=== PATIENT | male | born 1965 | race Caucasian/White ===

== ENCOUNTER → 2017-08-30 | Day surgery (SDC) | payer OTHER ==
[2017-08-24 08:07] VITALS: BMI 38.0
[~2017-08-30] VITALS: Ht 188 cm; Wt 136.4 kg
[~2017-08-30] MED LIST: ATOR-24 PO; BENZOCAIN/TETRACA/BUTAM SPRAY 200 APPLN/20 GM SPRY ONE; FRS/40 PO; GLYCOPYRROLATE INJ 0.2 MG/ML VIAL ONE; HYZ/50125 PO; KETAMINE HCL INJ 50 MG/ML 10 ML VIAL ONE; LEVO175T3 PO; LIDOCAINE HCL 2% 2 ML VIAL (20MG/ML) ONE; MIDAZOLAM HCL 1 MG/ML 2ML VIAL ONE; MULT-506 PO; PRLSR20 PO; PROPOFOL IV EMULSION 10 MG/ML 20 ML VIAL IV ONE
[2017-08-30 07:55] VITALS: Ht 188 cm; Wt 136.4 kg
--- NOTE | 2017-08-30 08:53 | Endo History and Physical ---
History & Physical Date of Service: Aug 30, 2017. Chief Complaint: HX OF BARRETTS Referring Physician: DR HAMMER History of Present Illness h/o owens's Past Medical History Gastrointestinal Disorder, Reflux, High Cholesterol, Sleep Apnea, Hypertension, Thyroid Disease Past Surgical History Hx Cardiac Surgery: No Hx Internal Defibrillator: No Hx Pacemaker: No Hx Abdominal Surgery: No Hx Post-Op Nausea and Vomiting: No Hx Cancer Surgery: No Hx Thoracic Surgery: No Hx Orthopedic: Yes (RT KNEE ARTHROSCOPY) Hx Urinary Tract Surgery: No Family History None Social History Smoking Status: Former Smoker Hx Substance Use: No Hx Alcohol Use: Yes (OCCASIONALLY) Allergies Coded Allergies: No Known Allergies (Unverified , 08/30/17) Current Medications Reported Home Medications Medications Dose Route/Sig Max Daily Dose Days Date Category Hyzaar 12.5MG/50MG (HCTZ/Losartan Potassium) Tab 1 Tab PO QAM 08/24/17 Reported Prilosec (Omeprazole) 20 Mg Capcr 20 Mg PO QAM 08/24/17 Reported Multivitamin (Multivitamins) Tab 1 Tab PO QAM 08/24/17 Reported Levothyroxine Sodium 175 Mcg Tab 1 Tab PO QAM 08/24/17 Reported Lasix (Furosemide) 40 Mg Tab 40 Mg PO 2XWK 08/24/17 Reported Lipitor (Atorvastatin Calcium) 40 Mg Tab 40 Mg PO QAM 03/05/14 Reported Vital Signs Weight (Kilograms): 136.36 Height (Feet): 6 Height (Inches): 2 Date Time Temp Pulse Resp B/P (MAP) Pulse Ox O2 Delivery O2 Flow Rate FiO2 08/30/17 08:00 36.8 62 20 148/85 (106) 96 Room Air Physical Exam General Appearance: no apparent distress Respiratory/Chest: Auscultation: breath sounds normal Cardiovascular: Heart Auscultation: RRR Abdomen: Inspection & Palpation: soft Assessment and Plan Owens's = EGD
--- NOTE | 2017-08-30 09:23 | Discharge Instructions ---
Endoscopy Patient Instructions Date / Procedure(s) Performed Aug 30, 2017. EGD Allergy Information Coded Allergies: No Known Allergies (Unverified , 08/30/17) Discharge Date / Findings Aug 30, 2017. Short segment Winters's esophagus, biopsied. Hiatal hernia. Provider Instructions Activity Restrictions - No exercising or heavy lifting for 24 hours. - Do not drink alcohol the day of the procedure. - Do not drive a car or operate machinery until the day after the procedure. - Do not make any important decisions or sign important papers in 24 hours after the procedure. Following Day: - Return to full activity which may include returning to work/school. Diet Start your diet with liquids and light foods (jello, soup, juice, toast). Then eat your usual diet if not nauseated. Treatment For Common After Affects For mild abdominal pain, bloating, or excessive gas: - Rest - Eat lightly - Lie on right side Follow-Up Information Follow-up with DR HAMMER as scheduled Anesthesia Information What You Should Know You have had a procedure that required some medicine to reduce anxiety and discomfort. This treatment is called moderate sedation. After receiving the treatment, you may be sleepy, but you will be able to breathe on your own. The effects of the treatment may last for several hours. Follow these instructions along with Activity/Diet recommendations noted above: * Do NOT do anything where dizziness or clumsiness would be dangerous. * Rest quietly at home today, then you can be up and about tomorrow. * Have a responsible person stay with you the rest of today. * You may have had an I.V. today. If so, you may take the dressing off later today. Recommendations Call your doctor if: * Trouble breathing * Continuous vomiting for more than 24 hours * Temperature above 101 degrees * Severe abdominal pain or bloating * Pain not relieved by pain medicine ordered * There is increased drainage or redness from any incision * A large amount of rectal bleeding greater than 2-3 tablespoons. (If you had a polyp/s removed or have hemorrhoids, a small amount of blood - from the rectum is to be expected.) * You have any unanswered questions or concerns. IN THE EVENT OF A SERIOUS EMERGENCY, GO TO THE NEAREST EMERGENCY ROOM Your discharge instructions were prepared by provider Leyla Pepe. Patient Instructions Signature Page Niranjan Hayes Patient (or Guardian) Signature/Date: I have read and understand the instructions given to me by my caregivers. Caregiver/RN/Doctor Signature/Date: The above-named patient and/or guardian has received patient instructions on this date. + Original Patient Signature Page (only) stays with chart. Please make copy for patient.
--- NOTE | 2017-08-30 09:23 | GI REPORT ---
Procedure Date: 08/30/2017 8:16 AM Procedure: Upper GI endoscopy Indications: Follow-up of Winters's esophagus Medicines: See the Anesthesia note for documentation of the administered medications Complications: No immediate complications. Estimated Blood Loss: Estimated blood loss: none. Procedure: Pre-Anesthesia Assessment: - ASA Grade Assessment: III - A patient with severe systemic disease. After obtaining informed consent, the endoscope was passed under direct vision. Throughout the procedure, the patient's blood pressure, pulse, and oxygen saturations were monitored continuously. The Scope was introduced through the mouth, and advanced to the second part of duodenum. The upper GI endoscopy was accomplished without difficulty. The patient tolerated the procedure well. Findings: The esophagus and gastroesophageal junction were examined with white light from a forward view and retroflexed position. There were esophageal mucosal changes suggestive of short-segment Winters's esophagus, classified as Winters's stage C0-M1 per Ralph criteria. These changes involved the mucosa at the upper extent of the gastric folds (40 cm from the incisors) extending to the Z-line (39 cm from the incisors). [place]-colored mucosa was present. The maximum longitudinal extent of these esophageal mucosal changes was 1 cm in length. Mucosa was biopsied with a cold forceps for histology. One specimen bottle was sent to pathology. A medium-sized hiatal hernia was present. The stomach was normal. The examined duodenum was normal. Impression: - Esophageal mucosal changes suggestive of short-segment Winters's esophagus, classified as Winters's stage C0-M1 per Ralph criteria. Biopsied. - Medium-sized hiatal hernia. - Normal stomach. - Normal examined duodenum. Recommendation: - Discharge patient to home. Leyla Rome M.D. Leyla Rome MD 08/30/2017 9:22:51 AM This report has been signed electronically. Note Initiated On: 08/30/2017 8:16 AM I attest to the content of the Intraoperative Record and orders documented therein, exceptions below
[2017-08-30 09:49] VITALS: BP 125/74; PULSE 74; O2SAT 96
--- NOTE | 2017-08-30 09:50 | Anesthesiology Progress Note ---
Anesthesia Post Op Note Date & Time Aug 30, 2017 at 09:50 Vital Signs Pain Intensity: 0 Vital Signs Past 12 Hours Date Time Temp Pulse Resp B/P (MAP) Pulse Ox O2 Delivery O2 Flow Rate FiO2 08/30/17 09:33 74 18 130/77 (94) 93 Room Air 08/30/17 09:19 36.0 56 16 125/48 (73) 96 Room Air 08/30/17 08:00 36.8 62 20 148/85 (106) 96 Room Air Notes Mental Status: alert / awake / arousable, participated in evaluation Pt Amnestic to Procedure: Yes Nausea / Vomiting: adequately controlled Pain: adequately controlled Airway Patency, RR, SpO2: stable & adequate BP & HR: stable & adequate Hydration State: stable & adequate Anesthetic Complications: no major complications apparent
== END | disposition home or self-care (01) ==
LOC: C.GI 07:40
PROVIDERS: ATTEND Internal Medicine Gastroenterology
DX: K20.9 Esophagitis, unspecified (principal); K21.9 Gastro-esophageal reflux disease without esophagitis; G47.30 Sleep apnea, unspecified; I10 Essential (primary) hypertension; Z87.891 Personal history of nicotine dependence; G47.33 Obstructive sleep apnea (adult) (pediatric); Z99.89 Dependence on other enabling machines and devices; E78.5 Hyperlipidemia, unspecified

== ENCOUNTER 2025-03-28 19:27 | Inpatient (IN) ==
[2025-03-28] MEDS: HYDROmorphone INJ 0.5 MG/0.5 ML SYR IV STA (20:21)
[2025-03-28 20:30] LABS: Hematocrit (blood only) 42.0 % (42.0-52.0); Hemoglobin 14.6 g/dL (14.0-18.0); Immature Granulocytes # (auto) 0.19 K/uL (0.01-0.20); Immature Granulocytes % (auto) 1.0 %; Mean Corpuscular Hemoglobin 29.5 pg (25.0-34.0); Mean Corpuscular Volume 84.8 fL (80.0-100.0); Platelet Count 421 K/uL (130-400); RDW Standard Deviation 38.1 fL (36.4-46.3); Red Blood Count 4.95 M/uL (4.70-6.10); White Blood Count 18.88 K/ul (4.8-10.8)
[2025-03-28 20:44] LABS: Alanine Aminotransferase 11 U/L (7-52); Albumin Globulin Ratio 1.0 (0.9-2); Albumin Level 4.0 gm/dl (3.4-5.0); Alkaline Phosphatase 114 U/L (34-104); Anion Gap 13 (3-11); Bilirubin,Total 0.5 mg/dl (0.2-1.0); Blood Urea Nitrogen 49 mg/dl (6-23); Calcium 9.5 mg/dl (8.6-10.3); Carbon Dioxide 26 mmol/L (21-32); Chloride 90 mmol/L (98-107); Globulin 3.9 gm/dl (2.5-4.0); Glucose 129 mg/dl (70-99(Fasting)); Potassium 4.0 mmol/L (3.5-5.1); Sodium 129 mmol/L (136-145); Total Protein 7.9 gm/dl (6.0-8.3)
--- NOTE | 2025-03-28 20:53 | Emergency Department Note ---
Impression & Plan Pain from bone metastases, Cancer related pain, Palliative care by specialist, Advanced care planning/counseling discussion ED Provider Note NAME: ABDIEL VALENTINE AGE: 60 SEX: M : 1965 ARRIVES VIA: Walk-In INFORMANT: [Patient][, ] ED PROVIDER(S): [Anita Ramos MD] CHIEF COMPLAINT: Pain management HPI: This is a 60-year-old male presenting for pain management request. 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 He has had a history of lung cancer with metastasis to multiple areas. He is in chronic pain. He had multiple doctors appointments today including palliative and rad oncology. He notes slight improved pain after radiation. ROS: See above HPI for pertinent positives & negatives. A total of [10] systems reviewed and were otherwise negative. PHYSICAL EXAMINATION: General: resting comfortably in no acute distress Head: Normocephalic and atraumatic Eyes: Normal inspection, extraocular muscles intact Ear, nose, throat: Normal external exam Neck: Normal range of motion Respiratory: speaking in full sentences, symmetric chest rise, no respiratory distress Cardiovascular: Regular rate/rhythm Extremities: moves all extremities Neuro: The patient awake and alert, appropriately conversive, symmetric faces, no focal deficits MEDICAL DECISION MAKING: This is a 60-year-old male presenting for pain management request/admission. Will do screening blood work at this time. He was sent in by palliative for admission -Leukocytosis noted to 18, mildly decreased. Slightly worsening hyponatremia/hypochloremia. -Patient given Dilaudid -Care discussed with Dr. Stahl for admission Past Med/Surg History Problem List (Updated 03/28/25 @ 23:18 by Anita Ramos MD) Advanced care planning/counseling discussion (Acute) Anxiety Diabetic foot ulcer (Acute) 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 unknown primary site (Acute) Acute hyperglycemia (Acute) Leukocytosis (Acute) Back pain, lumbosacral Back muscle spasm Palliative care by specialist (Acute) Lumbar pain (Acute) Cancer related pain (Acute) Pain from bone metastases (Chronic) Medical History (Updated 03/28/25 @ 23:18 by Anita Ramos MD) Raynauds disease Parkinson's disease HTN (hypertension) MARISABEL (obstructive sleep apnea) Barretts esophagus Hypothyroidism Obesity Personal history of diabetic foot ulcer Diabetic peripheral neuropathy associated with type 2 diabetes mellitus High cholesterol Surgical History Hx of colonoscopy 2024 H/O arthroscopy of right knee History of neck surgery Wore Halo d/t "broken neck" - no surgery Family History Mother No problems noted. Father , 65yo Myocardial infarction Hypertension Diabetes Bladder cancer Sister History of renal ablation Son No problems noted. Son No problems noted. Social History (Updated 03/27/25 @ 09:13 by Michelle Bernal) Smoking Status: Never smoker Tobacco Type: Cigarettes and Smokeless Tobacco (Dip or Chew) Age Started Using Tobacco: 19; Age Quit Using Tobacco: 24; Second Hand Exposure: Yes; Do You Dip or Chew Tobacco: Yes; Hx Alcohol Use: Yes Alcohol type: beer Alcohol Intake Frequency: 2-4 x/Month Hx Substance Use: No Preferred Language: Belarusian Communication Ability: Effective Visual Impairment: No Limitations Hearing Ability: Normal Epic Radiant Analyst Required: No Beliefs That Will Affect Care: None marital status: Current Living Situation: Significant Other current occupational status: employed 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 How many Children do You have: 2 Feels Safe at Home: Yes Diet: regular caffeine: Yes (1-2 cups/day) during the past year weight has: remained stable Assistive Devices: CPAP and Glasses Allergies Allergies Allergy/AdvReac Type Severity Reaction Status Date / Time No Known Allergies Allergy Verified 03/28/25 21:01 Home Meds Home Medications Medication Instructions Recorded Confirmed atorvastatin 40 mg tablet 40 mg PO DAILY 08/12/22 03/28/25 furosemide 40 mg tablet (Lasix) 40 mg PO DAILY 08/12/22 03/28/25 levothyroxine 175 mcg capsule 175 mcg PO DAILY 08/12/22 03/28/25 losartan 50 mg-hydrochlorothiazide 1 tab PO DAILY 08/12/22 03/28/25 12.5 mg tablet (Hyzaar) multivitamin (One Daily 1 tab PO QAM 08/12/22 03/28/25 Multivitamin tablet) omeprazole 20 mg capsule,delayed 20 mg PO DAILY 08/12/22 03/28/25 release ibuprofen 125 mg-acetaminophen 250 3 tab PO Q8H PRN Pain 03/19/25 03/28/25 mg tablet (Advil Dual Action) tirzepatide 5 mg/0.5 mL 5 mg subcut WK 03/19/25 03/28/25 subcutaneous pen injector (Al) lorazepam 0.5 mg tablet 0.5 mg buccal DIRECTED PRN 03/24/25 03/28/25 NEEDED Previous Rx's Medication Instructions Recorded carbidopa 25 mg-levodopa 100 mg 1 tab PO TID #1 tab 03/21/25 tablet (Dhivy) cyclobenzaprine 10 mg tablet 10 mg PO TID PRN muscle spasm 1 03/21/25 month #90 tabs dexamethasone 4 mg tablet 4 mg PO BID severe cancer pain 1 03/21/25 month #60 tabs oxycodone 15 mg tablet 15 mg PO Q4H PRN cancer related 03/21/25 pain 30 days #180 tabs lidocaine 5 % topical patch 1 patch topical DAILY #30 ea 03/24/25 naloxone 4 mg/actuation nasal 1 spray intranasal ONCE PRN opioid 03/24/25 spray (Narcan) overdose #2 ea lorazepam 1 mg tablet (Ativan) 1 mg PO Q8H PRN SPASMS AND anxiety 03/28/25 1 month #90 tabs Results & Data (ED) Vital Signs Vital Signs - 24 hr 03/28/25 19:29 03/28/25 21:27 03/28/25 21:54 Temperature 36.9 C Temperature Source Temporal Artery Scan Pulse Rate 91 H 78 Pulse Rate [Apical] 78 Pulse Rate from SpO2 Sensor 78 Respiratory Rate 16 19 13 Respiratory Effort / Characteristics Non-Labored Spontaneous Non-Labored Spontaneous Respiratory Depth Normal Normal Respiratory Pattern Regular Regular Blood Pressure 118/81 Blood Pressure [Right Arm] 141/84 H Blood Pressure Mean 93 Blood Pressure Mean [Right Arm] 103 Pulse Oximetry 95 98 98 Oxygen Delivery Method Room Air Room Air Sepsis Recent Fever Within 48 Hours No Sepsis New/Unexplained Change in Mental Status No Sepsis Action Taken by Nursing No Action Required 03/28/25 21:58 03/28/25 22:00 03/28/25 22:00 Temperature Temperature Source Pulse Rate 82 73 Pulse Rate [Apical] Pulse Rate from SpO2 Sensor 73 Respiratory Rate 20 Respiratory Effort / Characteristics Respiratory Depth Respiratory Pattern Blood Pressure 118/82 Blood Pressure [Right Arm] Blood Pressure Mean 97 Blood Pressure Mean [Right Arm] Pulse Oximetry 98 Oxygen Delivery Method Sepsis Recent Fever Within 48 Hours Sepsis New/Unexplained Change in Mental Status Sepsis Action Taken by Nursing 03/28/25 22:00 03/28/25 22:00 03/28/25 22:00 Temperature Temperature Source Pulse Rate Pulse Rate [Apical] Pulse Rate from SpO2 Sensor Respiratory Rate Respiratory Effort / Characteristics Respiratory Depth Respiratory Pattern Blood Pressure 118/82 118/82 118/82 Blood Pressure [Right Arm] Blood Pressure Mean 97 97 97 Blood Pressure Mean [Right Arm] Pulse Oximetry Oxygen Delivery Method Sepsis Recent Fever Within 48 Hours Sepsis New/Unexplained Change in Mental Status Sepsis Action Taken by Nursing 03/28/25 22:00 03/28/25 22:12 03/28/25 22:21 Temperature Temperature Source Pulse Rate 101 H 76 Pulse Rate [Apical] Pulse Rate from SpO2 Sensor 81 76 Respiratory Rate 16 13 Respiratory Effort / Characteristics Respiratory Depth Respiratory Pattern Blood Pressure 118/82 Blood Pressure [Right Arm] Blood Pressure Mean 97 Blood Pressure Mean [Right Arm] Pulse Oximetry 97 95 Oxygen Delivery Method Sepsis Recent Fever Within 48 Hours Sepsis New/Unexplained Change in Mental Status Sepsis Action Taken by Nursing 03/28/25 22:30 03/28/25 22:30 03/28/25 22:30 Temperature Temperature Source Pulse Rate Pulse Rate [Apical] Pulse Rate from SpO2 Sensor Respiratory Rate Respiratory Effort / Characteristics Respiratory Depth Respiratory Pattern Blood Pressure 109/83 109/83 109/83 Blood Pressure [Right Arm] Blood Pressure Mean 98 98 98 Blood Pressure Mean [Right Arm] Pulse Oximetry Oxygen Delivery Method Sepsis Recent Fever Within 48 Hours Sepsis New/Unexplained Change in Mental Status Sepsis Action Taken by Nursing 03/28/25 22:30 03/28/25 22:30 03/28/25 22:30 Temperature Temperature Source Pulse Rate 93 H Pulse Rate [Apical] Pulse Rate from SpO2 Sensor 79 Respiratory Rate 22 Respiratory Effort / Characteristics Respiratory Depth Respiratory Pattern Blood Pressure 109/83 109/83 Blood Pressure [Right Arm] Blood Pressure Mean 98 98 Blood Pressure Mean [Right Arm] Pulse Oximetry 96 Oxygen Delivery Method Sepsis Recent Fever Within 48 Hours Sepsis New/Unexplained Change in Mental Status Sepsis Action Taken by Nursing 03/28/25 22:42 03/28/25 22:51 Temperature Temperature Source Pulse Rate 76 96 H Pulse Rate [Apical] Pulse Rate from SpO2 Sensor 77 Respiratory Rate 14 18 Respiratory Effort / Characteristics Respiratory Depth Respiratory Pattern Blood Pressure Blood Pressure [Right Arm] Blood Pressure Mean Blood Pressure Mean [Right Arm] Pulse Oximetry 99 Oxygen Delivery Method Sepsis Recent Fever Within 48 Hours Sepsis New/Unexplained Change in Mental Status Sepsis Action Taken by Nursing Laboratory Data 03/28/25 20:04 03/28/25 20:04 Lab Results 03/28/25 Range/Units 20:04 WBC 18.88 H (4.8-10.8) K/ul RBC 4.95 (4.70-6.10) M/uL Hgb 14.6 (14.0-18.0) g/dL Hct 42.0 (42.0-52.0) % MCV 84.8 (80.0-100.0) fL MCH 29.5 (25.0-34.0) pg MCHC 34.8 (32.0-36.0) g/dL RDW Std Deviation 38.1 (36.4-46.3) fL RDW Coeff of Melania 12.5 (11.5-14.5) % Plt Count 421 H (130-400) K/uL MPV 9.3 L (9.4-12.4) fL Immature Gran % (Auto) 1.0 % Neut % (Auto) 81.0 % Lymph % (Auto) 8.5 % [place] % (Auto) 9.1 % Eos % (Auto) 0.3 % Baso % (Auto) 0.1 % Neut # (Auto) 15.29 H (1.40-6.50) K/uL Lymph # (Auto) 1.60 (1.20-3.40) K/uL [place] # (Auto) 1.72 H (0.11-0.59) K/uL Eos # (Auto) 0.06 (0.00-0.50) K/uL Baso # (Auto) 0.02 (0.00-0.20) K/uL Immature Gran # (Auto) 0.19 (0.01-0.20) K/uL Sodium 129 L (136-145) mmol/L Potassium 4.0 (3.5-5.1) mmol/L Chloride 90 L (98-107) mmol/L Carbon Dioxide 26 (21-32) mmol/L Anion Gap 13 H (3-11) BUN 49 H (6-23) mg/dl Creatinine 1.40 (0.6-1.4) mg/dl Est Cr Clr Drug Dosing Not Reportable eGFR 57.18 BUN/Creatinine Ratio 35.0 H (10-20) Glucose 129 H (70-99(Fasting)) mg/dl Calcium 9.5 (8.6-10.3) mg/dl Total Bilirubin 0.5 (0.2-1.0) mg/dl AST 22 (13-39) U/L ALT 11 (7-52) U/L Alkaline Phosphatase 114 H (34-104) U/L Total Protein 7.9 (6.0-8.3) gm/dl Albumin 4.0 (3.4-5.0) gm/dl Globulin 3.9 (2.5-4.0) gm/dl Albumin/Globulin Ratio 1.0 (0.9-2) Administered Medications Al Hydrox/Mg Hydrox/Simethicone (Aluminum/Magnesium Susp 30 Ml Udc) 15 ml PO Q6H PRN PRN Reason: heartburn Stop: 04/27/25 22:59 Last Admin: 03/28/25 23:06 Dose: 15 ml Documented By: SAMI Hydromorphone HCl (Hydromorphone Inj 0.5 Mg/0.5 Ml Syr) 0.5 mg IV Q3H PRN PRN Reason: Pain (6,7,8,9,10) Stop: 04/11/25 21:35 Last Admin: 03/28/25 23:00 Dose: 0.5 mg Documented By: SAMI Discontinued Medications Hydromorphone HCl (Hydromorphone Inj 0.5 Mg/0.5 Ml Syr) 0.5 mg IV NOW STA Stop: 03/28/25 20:00 Last Admin: 03/28/25 20:21 Dose: 0.5 mg Documented By: SAMI Discharge Plan Visit Data Chief Complaint: Referred by Doctor Stated Complaint: PAIN MANAGEMENT, CANCER PT, NEEDS ADMITTED ED Provider: Anita Ramos Discharge Problem: Pain from bone metastases, Cancer related pain, Palliative care by specialist, Advanced care planning/counseling discussion Patient Disposition: Admitted As Inpatient Condition: Fair Forms Stand Alone Forms: My [facility] Study Edge Prescriptions Prescriptions: No Action Mounjaro 5 mg/0.5 mL pen injector 5 mg subcut WK Rx Instructions: TUESDAY EVENINGS ibuprofen-acetaminophen [Advil Dual Action] 125-250 mg tablet 3 tab PO Q8H PRN (Reason: Pain) atorvastatin 40 mg tablet 40 mg PO DAILY furosemide [Lasix] 40 mg tablet 40 mg PO DAILY losartan-hydrochlorothiazide [Hyzaar] 50-12.5 mg tablet 1 tab PO DAILY levothyroxine 175 mcg capsule 175 mcg PO DAILY multivitamin [One Daily Multivitamin] Tablet 1 tab PO QAM omeprazole 20 mg capsule,delayed release(DR/EC) 20 mg PO DAILY carbidopa-levodopa [Dhivy] 25-100 mg tablet 1 tab PO TID Qty: 1 0RF Rx Instructions: dos not need this filled, only adding to med list oxycodone 15 mg tablet 15 mg PO Q4H PRN (Reason: cancer related pain) 30 Days Qty: 180 0RF dexamethasone 4 mg tablet 4 mg PO BID 30 Days Qty: 60 1RF cyclobenzaprine 10 mg tablet 10 mg PO TID PRN (Reason: muscle spasm) 30 Days Qty: 90 2RF lorazepam [Ativan] 1 mg tablet 1 mg PO Q8H PRN (Reason: SPASMS AND anxiety) 30 Days Qty: 90 0RF lorazepam 0.5 mg tablet 0.5 mg buccal DIRECTED PRN (Reason: NEEDED) Rx Instructions: Please obtain from the [facility]. lidocaine 5 % adhesive patch,medicated 1 patch topical DAILY Qty: 30 0RF Rx Instructions: leave on most painful area for up to 12 hrs naloxone [Narcan] 4 mg/actuation spray,non-aerosol 1 spray intranasal ONCE PRN (Reason: opioid overdose) Qty: 2 0RF Referrals Referrals: Bessie Lugo MD [Primary Care Provider] -
[2025-03-28] MEDS ORDERED: HYDROmorphone INJ 0.5 MG/0.5 ML SYR IV PRN (21:36)
--- NOTE | 2025-03-28 21:50 | History & Physical Report ---
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 Still with severe, incapacitating pain. Reports he has not been able to stand or walk for the last several days. Newly started XRT with first treatment today - reports some pain relief with this treatment -Admit to PCU -Dilaudid RAILROADER - 0.2mg/hr continuous with 0.2g q 20minuts PRN - max of 0.8mg hourly -Continue Dexamethasone 4mg po daily -Holding Flexeril for now - may resume in AM if needed and if patient doing well on Dilaudid RAILROADER -Holding Ativan for now - concern for oversedation, respiratory depression when administered with increased opioid dosing. May resume with caution if needed -Palliative Care consultation appreciated -Lidoderm patch daily -Senna/Colace qAM scheduled -Miralax 17gm po BID PRN -Zofran PRN nausea -Narcan available for accidental overdose or respiratory depression #Diabetes -Hold Mounjaro - may be contributing in part to patient's constipation -Insulin sliding scale - CF 20, CR 10 -Goal blood sugar 110 - 160 #Hypertension -Continue Losartan/HCTZ for now #GERD -Protonix 40mg po daily #Hypothyroidism -Continue Synthroid 127mcg po daily #Parkinson's Disease -Continue Carbidopa-Levodopa #Hyperlipidemia -Continue Atorvastatin Ppx - Lovenox 40mg SQ daily Code - DNR History of Present Illness Chief Complaint: severe pain Primary Care Provider: Bessie Palmer MD Patient is a 60yo male with history of metastatic malignancy of unknown primary with lesion to bone as well as HTN, HLP, DM, Hypothyroidism presenting with poorly controlled pain secondary to malignancy. Patient started radiation therapy to his L3 spinal lesion today with Dr. Nair - reports he feels some improvement after the first treatment. Is scheduled to have 9 more treatments. Over the last several weeks he has been having poorly controlled pain - located in the back with frequent radiation to the right hip, occasional radiation to the left hip. No trauma. He had been on Oxycodone 5mg po QID. He was seen by the Palliative Care service and his Oxycodone was increased to 15mg po q 4 hours on 03/20/25 as well as Decadron 4mg po BID. Patient with minimal improvement with this regimen. Oxycodone then increased to 30mg po QID. Again with minimal improvement. Patient was seen again by Palliative Care today complaining of severe, ongoing pain. He was referred to the ER for IV main medication. Patient complaining of severe, ongoing lumbar back pain with radiation into the right hip. Positional in nature. He reports that pain has been so severe that he has been unable to stand or walk for the last several days. Also with ongoing constipation. No report of fever, chills, chest pain, cough, SOB, abdominal pain, nausea, vomiting No bowl or bladder dysfunction No new numbness/tingling or weakness of lower extremities - he does have a chronic neuropathy of lower legs bilaterally ER Course: Dilaudid 0.5mg IV x 2 doses Maalox Allergies Allergy/AdvReac Type Severity Reaction Status Date / Time No Known Allergies Allergy Verified 03/28/25 21:01 Home Medications Medication Instructions Recorded Confirmed Type atorvastatin 40 mg tablet 40 mg PO DAILY 08/12/22 03/28/25 History furosemide 40 mg tablet (Lasix) 40 mg PO DAILY 08/12/22 03/28/25 History levothyroxine 175 mcg capsule 175 mcg PO DAILY 08/12/22 03/28/25 History losartan 50 mg-hydrochlorothiazide 1 tab PO DAILY 08/12/22 03/28/25 History 12.5 mg tablet (Hyzaar) multivitamin (One Daily 1 tab PO QAM 08/12/22 03/28/25 History Multivitamin tablet) omeprazole 20 mg capsule,delayed 20 mg PO DAILY 08/12/22 03/28/25 History release ibuprofen 125 mg-acetaminophen 250 3 tab PO Q8H PRN Pain 03/19/25 03/28/25 History mg tablet (Advil Dual Action) tirzepatide 5 mg/0.5 mL 5 mg subcut WK 03/19/25 03/28/25 History subcutaneous pen injector (Mounjaro) carbidopa 25 mg-levodopa 100 mg 1 tab PO TID #1 tab 03/21/25 03/28/25 Rx tablet (Dhivy) cyclobenzaprine 10 mg tablet 10 mg PO TID PRN muscle spasm 1 03/21/25 03/28/25 Rx month #90 tabs dexamethasone 4 mg tablet 4 mg PO BID severe cancer pain 1 03/21/25 03/28/25 Rx month #60 tabs oxycodone 15 mg tablet 15 mg PO Q4H PRN cancer related 03/21/25 03/28/25 Rx pain 30 days #180 tabs lidocaine 5 % topical patch 1 patch topical DAILY #30 ea 03/24/25 03/28/25 Rx lorazepam 0.5 mg tablet 0.5 mg buccal DIRECTED PRN 03/24/25 03/28/25 History NEEDED naloxone 4 mg/actuation nasal 1 spray intranasal ONCE PRN opioid 03/24/25 03/28/25 Rx spray (Narcan) overdose #2 ea lorazepam 1 mg tablet (Ativan) 1 mg PO Q8H PRN SPASMS AND anxiety 03/28/25 03/28/25 Rx 1 month #90 tabs Past Med/Surg History Problem List (Updated 03/28/25 @ 23:27 by Lily Stahl DO) Diabetes Advanced care planning/counseling discussion (Acute) Anxiety Diabetic foot ulcer (Acute) 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 unknown primary site (Acute) Acute hyperglycemia (Acute) Leukocytosis (Acute) Back pain, lumbosacral Back muscle spasm Palliative care by specialist (Acute) Lumbar pain (Acute) Cancer related pain (Acute) Pain from bone metastases (Chronic) Medical History Raynauds disease Parkinson's disease HTN (hypertension) MARISABEL (obstructive sleep apnea) Barretts esophagus Hypothyroidism Obesity Personal history of diabetic foot ulcer Diabetic peripheral neuropathy associated with type 2 diabetes mellitus High cholesterol Surgical History Hx of colonoscopy 2024 H/O arthroscopy of right knee History of neck surgery Wore Halo d/t "broken neck" - no surgery Family History Mother No problems noted. Father , 65yo Myocardial infarction Hypertension Diabetes Bladder cancer Sister History of renal ablation Son No problems noted. Son No problems noted. Social History Smoking Status: Never smoker Tobacco Type: Cigarettes and Smokeless Tobacco (Dip or Chew) Age Started Using Tobacco: 19; Age Quit Using Tobacco: 24; Second Hand Exposure: Yes; Do You Dip or Chew Tobacco: Yes; Hx Alcohol Use: Yes Alcohol type: beer Alcohol Intake Frequency: 2-4 x/Month Hx Substance Use: No Preferred Language: Belarusian Communication Ability: Effective Visual Impairment: No Limitations Hearing Ability: Normal Nursing Director Required: No Beliefs That Will Affect Care: None marital status: Current Living Situation: Significant Other current occupational status: employed 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 How many Children do You have: 2 Feels Safe at Home: Yes Diet: regular caffeine: Yes (1-2 cups/day) during the past year weight has: remained stable Assistive Devices: CPAP and Glasses Review of Systems Review of Systems: All systems reviewed & are unremarkable except as noted in HPI & below Physical Exam Physical Exam: General: patient resting comfortably, NAD, non-toxic in appearance, AA&O x 4 Skin: warm, dry, intact, no rashes or lesions HEENT: NC/AT, PERRL, EOMI, anicteric sclera, conjunctiva without injection, external ear normal to inspection and nontender, nares patent, moist mucus membranes, dentition intact, no oropharyngeal lesions, neck supple, trachea midline, no LAD, no thyromegaly, no JVD Heart: +S1/S2, regular, no m/r/g Lungs: equal air entry bilaterally, no rales/rhonchi/wheezes Abd: +BS, soft, NT/ND, no masses/organomegaly/ascites Ext: warm, 2+ pulses in UE/LE bilaterally, no clubbing/cyanosis or edema Neuro: nonfocal, patient AA&O x 4, speech intact, no facial droop, moving all extremities on command with equal strength 5/5 Results & Data Results & Data Vital Signs (Past 12 Hours) Vital Signs Temp Pulse Pulse Resp BP BP Pulse Ox 03/28/25 21:27 78 19 141/84 H 98 03/28/25 19:29 36.9 C 91 H 16 118/81 95 O2 Del Method 03/28/25 21:27 Room Air 03/28/25 19:29 Room Air Laboratory Results Laboratory Results WBC 18.88 K/ul (4.8-10.8) H 03/28/25 20: RBC 4.95 M/uL (4.70-6.10) 03/28/25 20:04 Hgb 14.6 g/dL (14.0-18.0) 03/28/25 20: Hct 42.0 % (42.0-52.0) 03/28/25 20: MCV 84.8 fL (80.0-100.0) 03/28/25 20: MCH 29.5 pg (25.0-34.0) 03/28/25 20: MCHC 34.8 g/dL (32.0-36.0) 03/28/25 20: RDW Std Deviation 38.1 fL (36.4-46.3) 03/28/25: RDW Coeff of Melania 12.5 % (11.5-14.5) 03/28/25 20: Plt Count 421 K/uL (130-400) H 03/28/25 20: MPV 9.3 fL (9.4-12.4) L 03/28/25 20: Immature Gran % (Auto) 1.0 % 03/28/25 20: Neut % (Auto) 81.0 % 03/28/25: Lymph % (Auto) 8.5 % 03/28/25: [place] % (Auto) 9.1 % 03/28/25 20: Eos % (Auto) 0.3 % 03/28/25 20: Baso % (Auto) 0.1 % 03/28/25 20: Neut # (Auto) 15.29 K/uL (1.40-6.50) H 03/28/25 20: Lymph # (Auto) 1.60 K/uL (1.20-3.40) 03/28/25 20: [place] # (Auto) 1.72 K/uL (0.11-0.59) H 03/28/25 20: Eos # (Auto) 0.06 K/uL (0.00-0.50) 03/28/25 20:04 Baso # (Auto) 0.02 K/uL (0.00-0.20) 03/28/25 20:04 Immature Gran # (Auto) 0.19 K/uL (0.01-0.20) 03/28/25 20:04 Sodium 129 mmol/L (136-145) L 03/28/25 20:04 Potassium 4.0 mmol/L (3.5-5.1) 03/28/25 20:04 Chloride 90 mmol/L (98-107) L 03/28/25 20:04 Carbon Dioxide 26 mmol/L (21-32) 03/28/25 20:04 Anion Gap 13 (3-11) H 03/28/25 20:04 BUN 49 mg/dl (6-23) H 03/28/25 20:04 Creatinine 1.40 mg/dl (0.6-1.4) 03/28/25 20:04 Est Cr Clr Drug Dosing Not Reportable 03/28/25 20: eGFR 57.18 03/28/25 20:04 BUN/Creatinine Ratio 35.0 (10-20) H 03/28/25 20:04 Glucose 129 mg/dl (70-99(Fasting)) H 03/28/25 20:04 Calcium 9.5 mg/dl (8.6-10.3) 03/28/25 20:04 Total Bilirubin 0.5 mg/dl (0.2-1.0) 03/28/25 20:04 AST 22 U/L (13-39) 03/28/25 20:04 ALT 11 U/L (7-52) 03/28/25 20:04 Alkaline Phosphatase 114 U/L (34-104) H 03/28/25 20:04 Total Protein 7.9 gm/dl (6.0-8.3) 03/28/25 20: Albumin 4.0 gm/dl (3.4-5.0) 03/28/25 20: Globulin 3.9 gm/dl (2.5-4.0) 03/28/25 20:04 Albumin/Globulin Ratio 1.0 (0.9-2) 03/28/25 20:04 Diagnostic Findings PET, Tumor Imaging Skull base to Mid Thigh performed 03/28/2025 - READ PENDING Code Status & VTE Plan VTE Prophylaxis Plan VTE Prophylaxis will be ordered: Yes PG Care Time/CCT Total # of Minutes Spent Total Time Spent with Patient: Total time spent is greater than 50% in coordination of care (as documented) at patient's floor/unit and/or counseling patient: Coding Level of Care Code 41910 INT INP/OBS CARE MIN Diagnoses 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 unknown primary site C79.89; C80.1 HTN (hypertension) I10 High cholesterol E78.00 Hypothyroidism E03.9 MARISABEL (obstructive sleep apnea) G47.33 Parkinson's disease G20.A1 Diabetes E11.9
[2025-03-28] MEDS: HYDROmorphone INJ 0.5 MG/0.5 ML SYR IV PRN (23:00)
[2025-03-28] MEDS: ALUMINUM/MAGNESIUM SUSP 30 ML UDC PO PRN (23:06)
[2025-03-29] MEDS ORDERED: DEXTROSE 50% 50 ML SYRINGE IV PRN (00:32)
[2025-03-29] MEDS ORDERED: ACETAMINOPHEN 325 MG TAB PO PRN (00:32)
[2025-03-29] MEDS ORDERED: CARBOHYDRATES FOR HYPOGLYCEMIA PO PRN (00:32)
[2025-03-29] MEDS ORDERED: GLUCAGON FOR INJ 1 MG VIAL SQ PRN (00:32)
[2025-03-29] MEDS ORDERED: STAT IV Infusion **Titration per Protocol STA (00:32)
[2025-03-29] MEDS ORDERED: HYDROmorphone BOLUS from BAG IV PRN (00:32)
[2025-03-29] MEDS ORDERED: GLUCOSE 40% GEL 15 GM TUBE PO PRN (00:32)
[2025-03-29] MEDS ORDERED: NALOXONE HCL 0.4 MG/1 ML VIAL/CARP IV PRN ×2 (00:32→01:05)
[2025-03-29] MEDS ORDERED: GLUCOSE 10 TAB/TUBE PO PRN (00:32)
[2025-03-29] MEDS: ONDANSETRON INJ 2 MG/ML 2 ML VIAL IV PRN (01:19)
[2025-03-29] MEDS: SODIUM CHLORIDE 0.9% 1,000 ML IV SCH (01:46)
[2025-03-29] MEDS: HYDROmorphone PCA 30 MG/30 ML IV PRN (02:04)
[2025-03-29 05:05] LABS: Hematocrit (blood only) 40.0 % (42.0-52.0); Hemoglobin 14.1 g/dL (14.0-18.0); Mean Corpuscular Hemoglobin 29.9 pg (25.0-34.0); Mean Corpuscular Volume 84.9 fL (80.0-100.0); Platelet Count 407 K/uL (130-400); RDW Standard Deviation 38.1 fL (36.4-46.3); Red Blood Count 4.71 M/uL (4.70-6.10); White Blood Count 18.66 K/ul (4.8-10.8)
[2025-03-29 05:19] LABS: Anion Gap 12.0 (3-11); Blood Urea Nitrogen 49.0 mg/dl (6-23); Calcium 9.4 mg/dl (8.6-10.3); Carbon Dioxide 26.0 mmol/L (21-32); Chloride 91.0 mmol/L (98-107); Creatinine Clr Calc Pharmacy 107.4 ml/min; Glucose 117.0 mg/dl (70-99(Fasting)); Potassium 4.2 mmol/L (3.5-5.1); Sodium 129.0 mmol/L (136-145)
[2025-03-29] MEDS: LEVOTHYROXINE SODIUM 175 MCG TABLET PO SCH (06:02)
[2025-03-29] MEDS: INSULIN ASPART PER UNIT CHARGE SC SCH (09:06)
[2025-03-29] MEDS: DOCUSATE SODIUM/SENNA 50/8.6MG TAB PO SCH (09:14)
[2025-03-29] MEDS: CARBIDOPA/LEVODOPA 25/100MG TAB PO SCH (09:14)
[2025-03-29] MEDS: FUROSEMIDE 40 MG TAB PO SCH (09:14)
[2025-03-29] MEDS: ATORVASTATIN 40 MG TAB PO SCH (09:14)
[2025-03-29] MEDS: LOSARTAN/HCTZ 50/12.5MG TAB PO SCH (09:14)
[2025-03-29] MEDS: LIDOCAINE 5% 1 PATCH TD SCH (09:18)
[2025-03-29] MEDS: ENOXAPARIN INJ 40 MG/0.4 ML SYR SQ SCH (09:24)
--- NOTE | 2025-03-29 09:33 | Hospitalist Progress Note ---
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 Still with severe, incapacitating pain. Reports he has not been able to stand or walk for the last several days. - started XRT with first treatment today - reports some pain relief with this treatment -Admit to PCU -Satrted on Dilaudid STORM CHASER - 0.2mg/hr continuous with 0.2g q 20minuts PRN - max of 0.8mg hourly -Continue Dexamethasone 4mg po daily -Holding Flexeril and Ativan for now -Palliative Care consultation appreciated -Lidoderm patch daily -Senna/Colace qAM scheduled -Miralax 17gm po BID PRN -Zofran PRN nausea -Narcan available for accidental overdose or respiratory depression #Malignant Neoplasm of Unknown Primary with Metastasis to Bone / Pathology suggests adenocarcinoma, with mest to the bones currently undergoing pallaitive radiotion #Diabetes -Hold Mounjaro - may be contributing in part to patient's constipation -Insulin sliding scale - CF 20, CR 10 -Goal blood sugar 110 - 160 #Hypertension -Continue Losartan/HCTZ for now #GERD -Protonix 40mg po daily #Hypothyroidism -Continue Synthroid 127mcg po daily #Parkinson's Disease -Continue Carbidopa-Levodopa #Hyperlipidemia -Continue Atorvastatin Ppx - Lovenox 40mg SQ daily Code - DNR Admission and Anticipated Discharge Date Admission Date: March 28, 2025 Subjective patient seen and examined, his pain is now under better control following STORM CHASER dilaudid, plan is for him to go down for radiotherapy Review of Systems Review of Systems: All systems reviewed are negative, apart from the ones contained in the history. Physical Exam Physical Exam: The patient is awake, alert and oriented 3, well developed and well nourished, normocephalic and atraumatic, lying in bed and in no acute distress. HEENT--PERRL, EOMI, mucous membranes and oropharynx mildly dry Neck--supple. No JVD. No bruits. Thyroid normal, trachea midline, no adenopathy. Heart--normal S1 and S2. No murmurs, rubs or gallops. Lungs--clear bilaterally, no respiratory distress, no accessory muscle use. Abdomen--normal bowel sounds and soft. Extremities--no cyanosis or clubbing. No edema. Dermatologic--normal skin turgor, normal color, no abnormal lymph nodes, no rash. Neurologic--cranial nerves II through XII grossly intact. Rheumatologic--normal range of motion. Psychiatric--normal affect. Results & Data Results & Data Vital Signs (Past 12 Hours) Vital Signs Temp Pulse Pulse Resp BP BP BP 03/29/25 07:34 97.5 F L 80 18 123/81 03/29/25 07:22 69 03/29/25 06:03 97.5 F L 62 14 143/83 H 03/29/25 03:22 87 03/29/25 03:15 97.7 F 70 16 132/77 03/29/25 02:05 67 21 03/29/25 00:34 03/29/25 00:34 97.5 F L 59 L 16 127/85 03/29/25 00:15 03/28/25 23:30 81 15 131/105 H 03/28/25 23:00 81 16 114/75 03/28/25 22:51 96 H 18 03/28/25 22:42 76 14 03/28/25 22:30 93 H 22 03/28/25 22:30 109/83 03/28/25 22:30 109/83 03/28/25 22:30 109/83 03/28/25 22:30 109/83 03/28/25 22:30 109/83 03/28/25 22:21 76 13 03/28/25 22:12 101 H 16 03/28/25 22:00 118/82 03/28/25 22:00 118/82 03/28/25 22:00 118/82 03/28/25 22:00 118/82 03/28/25 22:00 118/03/28/25 22:00 73 20 03/28/25 21:58 82 03/28/25 21:54 78 13 Pulse Ox O2 Del Method FiO2 03/29/25 07:34 95 Room Air 03/29/25 07:22 03/29/25 06:03 96 Room Air 03/29/25 03:22 03/29/25 03:15 98 CPAP 03/29/25 02:05 94 21 03/29/25 00:34 Room Air 03/29/25 00:34 97 Room Air 03/29/25 00:15 Room Air 03/28/25 23:30 97 03/28/25 23:00 97 03/28/25 22:51 03/28/25 22:42 99 03/28/25 22:30 96 03/28/25 22:30 03/28/25 22:30 03/28/25 22:30 03/28/25 22:30 03/28/25 22:30 03/28/25 22:21 95 03/28/25 22:12 97 03/28/25 22:00 03/28/25 22:00 03/28/25 22:00 03/28/25 22:00 03/28/25 22:00 03/28/25 22:00 98 03/28/25 21:58 03/28/25 21:54 98 PG Care Time/CCT Total # of Minutes Spent Total Time Spent with Patient: Total time spent is greater than 50% in coordination of care (as documented) at patient's floor/unit and/or counseling patient: Coding Level of Care Code 96187 SUB INP/OBS CARE 2/35MIN Diagnoses 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 unknown primary site C79.89; C80.1 HTN (hypertension) I10 High cholesterol E78.00 Hypothyroidism E03.9 MARISABEL (obstructive sleep apnea) G47.33 Parkinson's disease G20.A1 Diabetes E11.9 Time Spent (min) 35
--- NOTE | 2025-03-29 12:36 | Palliative Care Consultation ---
Date of Consultation March 29, 2025 Assessment & Plan (1) Cancer related pain: Gentle increase to FIELD ENUMERATOR demand dose of Dilaudid from 0.2mg to 0.3mg Q20min, NO change to continuous rate OIC regimen reinforced Encouraged adequate hydration (2) Lumbar pain: 03/28/25, PETCT: 1. Extensive FDG avid metastatic disease, as detailed above. This includes skeletal, hepatic, muscular, soft tissue, [place], bilateral adrenal, right renal and right cerebellar metastases. 2. FDG avid left femoral neck lesion which measures approximately 2.8 cm. This increases risk for a pathologic fracture. L3 vertebral body metastasis with pathologic fracture. 3. 3.4 cm irregular right lower lobe FDG avid mass. Although not definitive, this favors a primary tumor. 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 Please page with any additional concerns. Chelsy Mercer DNP Director, Palliative Medicine History of Present Illness Attending Physician: Rossy Mills MD History of Present Illness Mr. Hayes is a 60-year-old male who has a remote smoking history. He recently presented to the emergency department with a complaint of hip pain and flank pain, underwent CT of the chest abdomen and pelvis which showed a 3.6 cm spiculated mass in the right lower lobe with adjacent 1.6 cm nodules and several additional right lung nodules. There was suspected bony mets at T11 and prominence of the left adrenal gland. There were enlarged mediastinal, hilar and axillary nodes. There were bony mets to the thoracolumbar spine with disease at T11 and at L3. Patient was seen by Dr. Reese who ordered guardian 360 CDX liquid biopsy, ordered the brain MRI which showed 2 lesions 1 measuring 1.2 cm in the left frontal lobe and a enhancing focus in the right cerebellum consistent with intracranial metastasis. There was partial identification of a likely bony met involving the C3 vertebral body. Vinh had his PET CT scan yesterday along with RT dose #1 he has severe intractable cancer related pain Dx with Parkinson's a year ago -has right arm tremor, sees Maria Elena Man, on [facility] He was seen as an emergency visit in my clinic yesterday where he reported the following: he feels pain is "terrible and I am really struggling, I am feeling at the end of my rope." PET CT is this afternoon and RT at 6pm. Has not felt much relief from RT yet Does not feel Decadron has helped either no relief with flexeril Chronically constipated from Monjouro, now worsened by OCI; typical BM every 2-3 days with Monjouro He is having very severe, refractory cancer pain: using Oxy IR 30mg PO q4h fairly on schedule - total daily dose 5 = 150mg Oxycodone = 300 OMEs Has not slept for days pain is 10+ /10 and meds are not giving any relief No relief with flexeril Feels pain has been increasing best relief was when he used oxy and ativan in tandem - was able to sleep a few hours BArely walking states in bed or on couch nearly all day any movement = severe pain cannot find a comfortable position also some intermittent but milder confusion due to brain met due to above, I advised ER eval after RT appt Today reports 50% improvement with Dilaudid FIELD ENUMERATOR Severe pain with repositioning, tells me it is still agony feels TR dose #1 might be helping. Is looking for larry to treatment today and thru weekend Appetite is ok family visiting [place] daughter works in OB, has been stopping by Allergies Allergy/AdvReac Type Severity Reaction Status Date / Time No Known Allergies Allergy Verified 03/28/25 21:01 Home Medications Medication Instructions Recorded Confirmed Type atorvastatin 40 mg tablet 40 mg PO DAILY 08/12/22 03/28/25 History furosemide 40 mg tablet (Lasix) 40 mg PO DAILY 08/12/22 03/28/25 History levothyroxine 175 mcg capsule 175 mcg PO DAILY 08/12/22 03/28/25 History losartan 50 mg-hydrochlorothiazide 1 tab PO DAILY 08/12/22 03/28/25 History 12.5 mg tablet (Hyzaar) multivitamin (One Daily 1 tab PO QAM 08/12/22 03/28/25 History Multivitamin tablet) omeprazole 20 mg capsule,delayed 20 mg PO DAILY 08/12/22 03/28/25 History release ibuprofen 125 mg-acetaminophen 250 3 tab PO Q8H PRN Pain 03/19/25 03/28/25 History mg tablet (Advil Dual Action) tirzepatide 5 mg/0.5 mL 5 mg subcut WK 03/19/25 03/28/25 History subcutaneous pen injector (Mounjaro) carbidopa 25 mg-levodopa 100 mg 1 tab PO TID #1 tab 03/21/25 03/28/25 Rx tablet (Dhivy) cyclobenzaprine 10 mg tablet 10 mg PO TID PRN muscle spasm 1 03/21/25 03/28/25 Rx month #90 tabs dexamethasone 4 mg tablet 4 mg PO BID severe cancer pain 1 03/21/25 03/28/25 Rx month #60 tabs oxycodone 15 mg tablet 15 mg PO Q4H PRN cancer related 03/21/25 03/28/25 Rx pain 30 days #180 tabs lidocaine 5 % topical patch 1 patch topical DAILY #30 ea 03/24/25 03/28/25 Rx lorazepam 0.5 mg tablet 0.5 mg buccal DIRECTED PRN 03/24/25 03/28/25 History NEEDED naloxone 4 mg/actuation nasal 1 spray intranasal ONCE PRN opioid 03/24/25 03/28/25 Rx spray (Narcan) overdose #2 ea lorazepam 1 mg tablet (Ativan) 1 mg PO Q8H PRN SPASMS AND anxiety 03/28/25 03/28/25 Rx 1 month #90 tabs ampicillin 500 mg capsule 500 mg PO TID 14 days #42 caps 03/29/25 Rx Patient History Medical History Raynauds disease Parkinson's disease HTN (hypertension) MARISABEL (obstructive sleep apnea) Barretts esophagus Hypothyroidism Obesity Personal history of diabetic foot ulcer Diabetic peripheral neuropathy associated with type 2 diabetes mellitus High cholesterol Surgical History Hx of colonoscopy 2024 H/O arthroscopy of right knee History of neck surgery Wore Halo d/t "broken neck" - no surgery Family History Mother No problems noted. Father , 65yo Myocardial infarction Hypertension Diabetes Bladder cancer Sister History of renal ablation Son No problems noted. Son No problems noted. Social History Smoking Status: Former smoker Tobacco Type: Cigarettes and Smokeless Tobacco (Dip or Chew) Age Started Using Tobacco: 19; Age Quit Using Tobacco: 24; Second Hand Exposure: Yes; Do You Dip or Chew Tobacco: Yes; Hx Alcohol Use: Yes Alcohol type: beer Alcohol Intake Frequency: 2-4 x/Month Hx Substance Use: No Preferred Language: Setswana Communication Ability: Effective Visual Impairment: No Limitations Hearing Ability: Normal Administrative Law Judge Required: No Beliefs That Will Affect Care: None marital status: Current Living Situation: Significant Other current occupational status: employed 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 How many Children do You have: 2 Feels Safe at Home: Yes Safety Concerns: Feels Safe At This Time Diet: regular caffeine: Yes (1-2 cups/day) during the past year weight has: remained stable Assistive Devices: None Review of Systems Review of Systems: All systems reviewed & are unremarkable except as noted in Subjective Physical Exam Physical Exam: less distress, +pain/grimaces with movement and repositioning lumbosacral back TTP with +paraspinal muscle spasms rotation to sides is difficult/induces pain +radiating pain elicited from back into BLE strength diminished BLE +gen weakness +tremor RUE/known PD AAOx3 unable to assess gait mood is brighter today - more eye contact, smiling, making a few jokes Results & Data Vital Signs (Past 12 Hours) Vital Signs Temp Pulse Pulse Resp BP BP Pulse Ox 03/29/25 12:07 36.4 C L 109 H 18 132/77 95 03/29/25 07:34 36.4 C L 80 18 123/81 95 03/29/25 07:22 69 03/29/25 06:03 36.4 C L 62 14 143/83 H 96 03/29/25 03:22 87 03/29/25 03:15 36.5 C 70 16 132/77 98 03/29/25 02:05 67 21 94 03/29/25 00:34 03/29/25 00:34 36.4 C L 59 L 16 127/85 97 O2 Del Method FiO2 03/29/25 12:07 Room Air 03/29/25 07:34 Room Air 03/29/25 07:22 03/29/25 06:03 Room Air 03/29/25 03:22 03/29/25 03:15 CPAP 03/29/25 02:05 21 03/29/25 00:34 Room Air 03/29/25 00:34 Room Air Laboratory Results 03/29/25 03/29/25 03/29/25 Range/Units 12:24 07:30 04:27 WBC 18.66 H (4.8-10.8) K/ul RBC 4.71 (4.70-6.10) M/uL Hgb 14.1 (14.0-18.0) g/dL Hct 40.0 L (42.0-52.0) % MCV 84.9 (80.0-100.0) fL MCH 29.9 (25.0-34.0) pg MCHC 35.3 (32.0-36.0) g/dL RDW Std Deviation 38.1 (36.4-46.3) fL RDW Coeff of Melania 12.4 (11.5-14.5) % Plt Count 407 H (130-400) K/uL MPV 9.4 (9.4-12.4) fL Immature Gran % (Auto) % Neut % (Auto) % Lymph % (Auto) % [place] % (Auto) % Eos % (Auto) % Baso % (Auto) % Neut # (Auto) (1.40-6.50) K/uL Lymph # (Auto) (1.20-3.40) K/uL [place] # (Auto) (0.11-0.59) K/uL Eos # (Auto) (0.00-0.50) K/uL Baso # (Auto) (0.00-0.20) K/uL Immature Gran # (Auto) (0.01-0.20) K/uL Sodium 129 L (136-145) mmol/L Potassium 4.2 (3.5-5.1) mmol/L Chloride 91 L (98-107) mmol/L Carbon Dioxide 26 (21-32) mmol/L Anion Gap 12 H (3-11) BUN 49 H (6-23) mg/dl Creatinine 1.02 D (0.6-1.4) mg/dl Est Cr Clr Drug Dosing 107.4 eGFR 83.62 BUN/Creatinine Ratio 48.0 H (10-20) Glucose 117 H (70-99(Fasting)) mg/dl POC Glucose 102 H 112 H (70-99) mg/dl Calcium 9.4 (8.6-10.3) mg/dl Total Bilirubin (0.2-1.0) mg/dl AST (13-39) U/L ALT (7-52) U/L Alkaline Phosphatase (34-104) U/L Total Protein (6.0-8.3) gm/dl Albumin (3.4-5.0) gm/dl Globulin (2.5-4.0) gm/dl Albumin/Globulin Ratio (0.9-2) 03/29/25 03/28/25 Range/Units 00:34 20:04 WBC 18.88 H (4.8-10.8) K/ul RBC 4.95 (4.70-6.10) M/uL Hgb 14.6 (14.0-18.0) g/dL Hct 42.0 (42.0-52.0) % MCV 84.8 (80.0-100.0) fL MCH 29.5 (25.0-34.0) pg MCHC 34.8 (32.0-36.0) g/dL RDW Std Deviation 38.1 (36.4-46.3) fL RDW Coeff of Melania 12.5 (11.5-14.5) % Plt Count 421 H (130-400) K/uL MPV 9.3 L (9.4-12.4) fL Immature Gran % (Auto) 1.0 % Neut % (Auto) 81.0 % Lymph % (Auto) 8.5 % Sau[place] % (Auto) 9.1 % Eos % (Auto) 0.3 % Baso % (Auto) 0.1 % Neut # (Auto) 15.29 H (1.40-6.50) K/uL Lymph # (Auto) 1.60 (1.20-3.40) K/uL [place] # (Auto) 1.72 H (0.11-0.59) K/uL Eos # (Auto) 0.06 (0.00-0.50) K/uL Baso # (Auto) 0.02 (0.00-0.20) K/uL Immature Gran # (Auto) 0.19 (0.01-0.20) K/uL Sodium 129 L (136-145) mmol/L Potassium 4.0 (3.5-5.1) mmol/L Chloride 90 L (98-107) mmol/L Carbon Dioxide 26 (21-32) mmol/L Anion Gap 13 H (3-11) BUN 49 H (6-23) mg/dl Creatinine 1.40 (0.6-1.4) mg/dl Est Cr Clr Drug Dosing Not Reportable eGFR 57.18 BUN/Creatinine Ratio 35.0 H (10-20) Glucose 129 H (70-99(Fasting)) mg/dl POC Glucose 118 H (70-99) mg/dl Calcium 9.5 (8.6-10.3) mg/dl Total Bilirubin 0.5 (0.2-1.0) mg/dl AST 22 (13-39) U/L ALT 11 (7-52) U/L Alkaline Phosphatase 114 H (34-104) U/L Total Protein 7.9 (6.0-8.3) gm/dl Albumin 4.0 (3.4-5.0) gm/dl Globulin 3.9 (2.5-4.0) gm/dl Albumin/Globulin Ratio 1.0 (0.9-2) Diagnostic Findings 03/28/25, PETCT: FINDINGS: Head and neck: A small right cerebellar FDG avid lesion corresponds to an enhancing lesion on MRI of March 13, 2025. No enlarged cervical lymph nodes are present. There is diffuse FDG uptake within the thyroid gland. Chest: There are FDG avid mediastinal and right hilar lymph nodes. The hilar hilar lymph nodes are difficult to measure on the unenhanced CT. The SUV max for the right hilar nodes is 20.9. An FDG avid 3.4 cm irregular right lower lobe mass on image 112 has an SUV max of 17.5. An adjacent 2.1 cm right lower lobe nodule on image 112 has an SUV max of 14.6. Moderate cardiomegaly is noted. Scattered groundglass opacities are present. A few additional smaller pulmonary nodules are also noted. Multiple FDG avid soft tissue implants within the chest are present. Abdomen and Pelvis: There are innumerable FDG avid hepatic lesions. Index 3.3 cm lesion within the medial segment of the left hepatic lobe has an SUV max of 26.5. There are FDG avid bilateral adrenal lesions. The SUV max for the left ad renal lesion is 30.8. The SUV max of the right adrenal lesion is 15.7. Multiple FDG avid soft tissue implants within the abdomen and pelvis are present. There is no evidence for a bowel obstruction. There is no hydronephrosis. A small FDG avid focus within the midpole the right kidney has an SUV max of 13.8. This is suggestive of a renal metastasis. Musculoskeletal: There are innumerable skeletal FDG avid lesions, including a lytic lesion within the left femoral neck which measures approximately 2.8 cm. This has an SUV max of 27. There are numerous FDG avid lesions within the spine, including an L3 vertebral body lesion which has an SUV max of 24.5. There is an associated pathologic fracture of the L3 vertebral body with mild loss of vertebral body height. Epidural extension is suboptimally assessed by PET/CT. Large lytic FDG avid lesion within the T10 vertebra has an SUV max of 22.9. Index FDG avid lesion within the left humeral neck has an SUV max of 33. There are innumerable muscular FDG avid lesions consistent with metastatic disease. These include a 4.2 cm left psoas lesion which has an SUV max of 24.4. IMPRESSION: 1. Extensive FDG avid metastatic disease, as detailed above. This includes skeletal, hepatic, muscular, soft tissue, [place], bilateral adrenal, right renal and right cerebellar metastases. 2. FDG avid left femoral neck lesion which measures approximately 2.8 cm. This increases risk for a pathologic fracture. L3 vertebral body metastasis with pathologic fracture. 3. 3.4 cm irregular right lower lobe FDG avid mass. Although not definitive, this favors a primary tumor. PG Care Time/CCT Total # of Minutes Spent Total Time Spent with Patient: Total time spent is greater than 50% in coordination of care (as documented) at patient's floor/unit and/or counseling patient: I spent 70 minutes overall addressing this case: 15 min in medical data review/discussion with referring provider(s) and/or preparation for the visit 20 min in direct interaction with the patient/exam 00 min in Advance Care Planning/Goals of Care discussions as detailed above in note (must be >16min) 15 min in subsequent review and synthesis of assessment and plan 20 min communicating with other providers regarding the patient's case: primary team, nursing [place] [address] INT INP/OBS CARE 3/75MIN Patient Type New Medical Decision Making High Complexity Diagnoses Cancer related pain G89.3 Lumbar pain M54.50 Palliative care by specialist Z51.5 Back muscle spasm M62.830 Anxiety F41.9 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 unknown primary site C79.89; C80.1 Comment [id number]
--- NOTE | 2025-03-29 13:43 | Orthopedic Consultation ---
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 * Recommend continued palliative radiation therapy. Will also order TLSO brace for comfort * Regarding left hip pain and pathologic lesion, would also formally consult orthopedic team for risk stratification and discussion of prophylactic nail * Weight bearing status: Recommend TLSO brace with activity * Daily treatment: Physical Therapy/ Occupational Therapy per protocol * Pain control * Disposition: TBD * Remainder care per primary team * Orthospine will follow peripherally History of Present Illness Reason for Consultation: pathologic L3 fracture Requesting Physician: . Attending Physician: Rossy Mills MD .Patient is a 60 y/o male with pathologic L3 fracture. PMH including metastatic malignancy of unknown primary with lesion to bone as well as HTN, HLP, DM, Hypothyroidism. Presents to hospital with poorly controlled pain secondary to malignancy. Recently started radiation therapy for L3 lesion. Current workup including PET CT 03/28 demonstrates L3 pathologic fracture, as well as left femoral neck lesion. Ortho-spine consulted for management recommendations regarding L3 fracture. At time of exam patient lying comfortably in bed, no acute distress. Reports constant moderate to severe low back pain, as well as alternating right and left hip pain. Historically his left hip has bothered him more, currently his right hip is causing pain. Denies tingling or numbness of bilateral lower extremity. Allergies Allergy/AdvReac Type Severity Reaction Status Date / Time No Known Allergies Allergy Verified 03/28/25 21:01 Home Medications Medication Instructions Recorded Confirmed Type atorvastatin 40 mg tablet 40 mg PO DAILY 08/12/22 03/28/25 History furosemide 40 mg tablet (Lasix) 40 mg PO DAILY 08/12/22 03/28/25 History levothyroxine 175 mcg capsule 175 mcg PO DAILY 08/12/22 03/28/25 History losartan 50 mg-hydrochlorothiazide 1 tab PO DAILY 08/12/22 03/28/25 History 12.5 mg tablet (Hyzaar) multivitamin (One Daily 1 tab PO QAM 08/12/22 03/28/25 History Multivitamin tablet) omeprazole 20 mg capsule,delayed 20 mg PO DAILY 08/12/22 03/28/25 History release ibuprofen 125 mg-acetaminophen 250 3 tab PO Q8H PRN Pain 03/19/25 03/28/25 History mg tablet (Advil Dual Action) tirzepatide 5 mg/0.5 mL 5 mg subcut WK 03/19/25 03/28/25 History subcutaneous pen injector (Mounjaro) carbidopa 25 mg-levodopa 100 mg 1 tab PO TID #1 tab 03/21/25 03/28/25 Rx tablet (Dhivy) cyclobenzaprine 10 mg tablet 10 mg PO TID PRN muscle spasm 1 03/21/25 03/28/25 Rx month #90 tabs dexamethasone 4 mg tablet 4 mg PO BID severe cancer pain 1 03/21/25 03/28/25 Rx month #60 tabs oxycodone 15 mg tablet 15 mg PO Q4H PRN cancer related 03/21/25 03/28/25 Rx pain 30 days #180 tabs lidocaine 5 % topical patch 1 patch topical DAILY #30 ea 03/24/25 03/28/25 Rx lorazepam 0.5 mg tablet 0.5 mg buccal DIRECTED PRN 03/24/25 03/28/25 History NEEDED naloxone 4 mg/actuation nasal 1 spray intranasal ONCE PRN opioid 03/24/25 03/28/25 Rx spray (Narcan) overdose #2 ea lorazepam 1 mg tablet (Ativan) 1 mg PO Q8H PRN SPASMS AND anxiety 03/28/25 03/28/25 Rx 1 month #90 tabs Past Med/Surg History Problem List (Updated 03/29/25 @ 13:47 by David Willis PA-C) L3 vertebral fracture Diabetes Advanced care planning/counseling discussion (Acute) Anxiety Diabetic foot ulcer (Acute) 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 unknown primary site (Acute) PETCT 03/28/25: 1. Extensive FDG avid metastatic disease, as detailed above. This includes skeletal, hepatic, muscular, soft tissue, [place], bilateral adrenal, right renal and right cerebellar metastases. 2. FDG avid left femoral neck lesion which measures approximately 2.8 cm. This increases risk for a pathologic fracture. L3 vertebral body metastasis with pathologic fracture. 3. 3.4 cm irregular right lower lobe FDG avid mass. Although not definitive, this favors a primary tumor. Acute hyperglycemia (Acute) Leukocytosis (Acute) Back pain, lumbosacral Back muscle spasm Palliative care by specialist (Acute) Lumbar pain (Acute) Cancer related pain (Acute) Pain from bone metastases (Chronic) Medical History Raynauds disease Parkinson's disease HTN (hypertension) MARISABEL (obstructive sleep apnea) Barretts esophagus Hypothyroidism Obesity Personal history of diabetic foot ulcer Diabetic peripheral neuropathy associated with type 2 diabetes mellitus High cholesterol Surgical History Hx of colonoscopy 2024 H/O arthroscopy of right knee History of neck surgery Wore Halo d/t "broken neck" - no surgery Family History Mother No problems noted. Father , 65yo Myocardial infarction Hypertension Diabetes Bladder cancer Sister History of renal ablation Son No problems noted. Son No problems noted. 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 Physical Exam . * General: Alert and oriented, no acute distress * Constitutional: well-developed, well-nourished. * Respiratory: Normal respiratory effort, no distress * Gastrointestinal: No tenderness to palpation, no rigidity or guarding. * Skin: No rash or lesion. * Neurologic: Grossly normal * Musculoskeletal: Lumbar spine region without obvious deformity or overlying skin changes. Mild tenderness in the region of L3 with local lumbar paraspinal spasm and tenderness, otherwise no tenderness b/l buttock or LE. Lumbar flexion/extension and rotation ROM with mild pain. AROM b/l hip flexion, knee flexion/extension, ankle flexion/extension intact. Sensation intact plantar/dorsal foot. Brisk capillary refill. Results & Data Results & Data Laboratory Results . Diagnostic Findings 03/[address] IMPRESSION: 1. Extensive FDG avid metastatic disease, as detailed above. This includes skeletal, hepatic, muscular, soft tissue, [place], bilateral adrenal, right renal and right cerebellar metastases. 2. FDG avid left femoral neck lesion which measures approximately 2.8 cm. This increases risk for a pathologic fracture. L3 vertebral body metastasis with pathologic fracture. 3. 3.4 cm irregular right lower lobe FDG avid mass. Although not definitive, this favors a primary tumor. PG Care Time/CCT Total # of Minutes Spent Total Time Spent with Patient: Total time spent is greater than 50% in coordination of care (as documented) at patient's floor/unit and/or counseling patient: [place] [address] IN/OBS CONSULT LVL 5,80M Patient Type New History Expanded Problem Focused Exam Expanded Problem Focused Medical Decision Making High Complexity Diagnoses 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 unknown primary site C79.89; C80.1 L3 vertebral fracture S32.039A
[2025-03-29] MEDS: REMOVE LIDODERM PATCH SCH (21:06)
[2025-03-30 06:29] LABS: Hematocrit (blood only) 39.1 % (42.0-52.0); Hemoglobin 13.5 g/dL (14.0-18.0); Mean Corpuscular Hemoglobin 29.4 pg (25.0-34.0); Mean Corpuscular Volume 85.2 fL (80.0-100.0); Platelet Count 368 K/uL (130-400); RDW Standard Deviation 38.7 fL (36.4-46.3); Red Blood Count 4.59 M/uL (4.70-6.10); White Blood Count 14.89 K/ul (4.8-10.8)
[2025-03-30 07:02] LABS: Anion Gap 11.0 (3-11); Blood Urea Nitrogen 35.0 mg/dl (6-23); Calcium 9.1 mg/dl (8.6-10.3); Carbon Dioxide 28.0 mmol/L (21-32); Chloride 91.0 mmol/L (98-107); Creatinine Clr Calc Pharmacy 133.6 ml/min; Glucose 114.0 mg/dl (70-99(Fasting)); Potassium 4.4 mmol/L (3.5-5.1); Sodium 130.0 mmol/L (136-145)
--- NOTE | 2025-03-30 10:50 | Hospitalist Progress Note ---
Date of Service March 30, 2025 Assessment & Plan (1) 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 unknown primary site: (2) HTN (hypertension): (3) High cholesterol: (4) Hypothyroidism: (5) MARISABEL (obstructive sleep apnea): (6) Parkinson's disease: (7) Diabetes: Plan Intractable Cancer Related Pain / Ambulatory dysfunction secondary to uncontrolled pain - Prior to admission,patient has been on escalating regime outpatient including Oxycodone, Dexamethasone, Flexeril. Still with severe, incapacitating pain. Reports he has not been able to stand or walk for the last several days. 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.2mg/hr continuous with 0.2g q 20minuts PRN - max of 0.8mg hourly -Continue Dexamethasone 4mg po daily -Holding Flexeril and Ativan for now -Palliative Care consultation appreciated -Lidoderm patch daily -Senna/Colace qAM scheduled -Miralax 17gm po BID PRN -Zofran PRN nausea -Narcan available for accidental overdose or respiratory depression -Continue radiation therapy #Malignant Neoplasm of Unknown Primary with Metastasis to Bone / Pathology suggests adenocarcinoma, with mest to the bones PET scan shows evidence of extensive metastatic disease with mets to the skeletal hepatic muscular soft tissue nodule bilateral adrenal right renal and right cerebellar metastasis. Also femoral neck lesions and right lower lobe lesions. currently undergoing pallaitive radiotion, However patient refused radiation yesterday and said he was afraid. Consult hematology and oncology Pathological fracture Likely pathological fracture of L3 Per spine surgery, patient would benefit from brace #Diabetes -Hold Mounjaro - may be contributing in part to patient's constipation -Insulin sliding scale - CF 20, CR 10 -Goal blood sugar 110 - 160 #Hypertension -Continue Losartan/HCTZ for now #GERD -Protonix 40mg po daily #Hypothyroidism -Continue Synthroid 127mcg po daily #Parkinson's Disease -Continue Carbidopa-Levodopa #Hyperlipidemia -Continue Atorvastatin Ppx - Lovenox 40mg SQ daily Code - DNR Admission and Anticipated Discharge Date Admission Date: March 28, 2025 Subjective patient seen and examined, his pain is now under better control following POND WORKER dilaudid, Review of Systems Review of Systems: All systems reviewed are negative, apart from the ones contained in the history. Physical Exam Physical Exam: The patient is awake, alert and oriented 3, well developed and well nourished, normocephalic and atraumatic, lying in bed and in no acute distress. HEENT--PERRL, EOMI, mucous membranes and oropharynx mildly dry Neck--supple. No JVD. No bruits. Thyroid normal, trachea midline, no adenopathy. Heart--normal S1 and S2. No murmurs, rubs or gallops. Lungs--clear bilaterally, no respiratory distress, no accessory muscle use. Abdomen--normal bowel sounds and soft. Extremities--no cyanosis or clubbing. No edema. Dermatologic--normal skin turgor, normal color, no abnormal lymph nodes, no rash. Neurologic--cranial nerves II through XII grossly intact. Rheumatologic--normal range of motion. Psychiatric--normal affect. Results & Data Results & Data Vital Signs (Past 12 Hours) Vital Signs Temp Pulse Pulse Resp BP Pulse Ox O2 Del Method 03/30/25 08:45 98.4 F 80 18 153/82 H 97 Room Air 03/30/25 07:31 64 03/30/25 04:00 97.5 F L 66 20 149/83 H 96 Room Air PG Care Time/CCT Total # of Minutes Spent Total Time Spent with Patient: Total time spent is greater than 50% in coordination of care (as documented) at patient's floor/unit and/or counseling patient: Coding Level of Care Code 62914 SUB INP/OBS CARE 2/35MIN Diagnoses 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 unknown primary site C79.89; C80.1 HTN (hypertension) I10 High cholesterol E78.00 Hypothyroidism E03.9 MARISABEL (obstructive sleep apnea) G47.33 Parkinson's disease G20.A1 Diabetes E11.9 Time Spent (min) 35
[2025-03-30] MEDS: POLYETHYLENE (MIRALAX) 17 GM PACK PO PRN (12:38)
--- NOTE | 2025-03-30 15:54 | Oncology Consultation ---
Date of Consultation March 30, 2025 Assessment & Plan (1) 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 unknown primary site: patient to be managed by my colleague on an outpatient basis. The patient will start palliative systemic therapy once discharged. Plan Thank you for this interesting oncological consult. A total of 60 minutes were spent in counseling, coronation care, review of prior records. History of Present Illness Reason for Consultation: Metastatic adenocarcinoma most likely of lung primary Attending Physician: Rossy Mills MD History of Present Illness FINAL DIAGNOSIS Soft tissue, left chest wall (core biopsy): - Metastatic adenocarcinoma (see comment). Comment: The tumor in this case was initially evaluated as an intraoperative touch prep. This Diff-Quik stained slide reveals malignant epithelial cells in 3-dimensional aggregates and small clusters. The H&E-stained slide of the processed tissue reveals malignant epithelial cells in gland formation and in sheets of cells associated with desmoplastic stroma. Some of the glands contain mucin. Multiple immunohistochemical stains were obtained in this case in an attempt to identify site of origin. The malignant cells are strongly and diffusely positive for CK7 and GATA3. A few nuclei are highlighted by the immunohistochemical stain for p40. The malignant epithelial cells are negative for CK20, CDX2, TTF1, Napsin A, NKX3.1, mammaglobin, estrogen receptor, progesterone receptor and the HER2/toni protein which reveals a score of 0. An immunohistochemical stain for the Ki-67 proliferation index indicates approximately 50% of the cells reveal this proliferation marker. This is clearly a high proliferation index. The GATA3 immunohistochemical stain is generally associated with breast adenocarcinoma and urothelial carcinoma. The histologic appearance is not that of a urothelial carcinoma as an adenocarcinoma is at this site. The markers to establish a breast origin are all negative. The patient clinically has a 3.6 cm spiculated mass of the right lower lobe of lung and additional lung nodules along with bony mets of T11 and L3, and metastatic disease to the brain. As such, residual adenocarcinoma in the block will be submitted to the [facility] laboratory for the CancerType ID and the Lung NeoType profile. The reports from these molecular tests will serve as addendum to this case. PET CT scan, 03/29/2025: IMPRESSION: 1. Extensive FDG avid metastatic disease, as detailed above. This includes skeletal, hepatic, muscular, soft tissue, [place], bilateral adrenal, right renal and right cerebellar metastases. 2. FDG avid left femoral neck lesion which measures approximately 2.8 cm. This increases risk for a pathologic fracture. L3 vertebral body metastasis with pathologic fracture. 3. 3.4 cm irregular right lower lobe FDG avid mass. Although not definitive, this favors a primary tumor. Allergies Allergy/AdvReac Type Severity Reaction Status Date / Time No Known Allergies Allergy Verified 03/28/25 21:01 Home Medications Medication Instructions Recorded Confirmed Type atorvastatin 40 mg tablet 40 mg PO DAILY 08/12/22 03/28/25 History furosemide 40 mg tablet (Lasix) 40 mg PO DAILY 08/12/22 03/28/25 History levothyroxine 175 mcg capsule 175 mcg PO DAILY 08/12/22 03/28/25 History losartan 50 mg-hydrochlorothiazide 1 tab PO DAILY 08/12/22 03/28/25 History 12.5 mg tablet (Hyzaar) multivitamin (One Daily 1 tab PO QAM 08/12/22 03/28/25 History Multivitamin tablet) omeprazole 20 mg capsule,delayed 20 mg PO DAILY 08/12/22 03/28/25 History release ibuprofen 125 mg-acetaminophen 250 3 tab PO Q8H PRN Pain 03/19/25 03/28/25 History mg tablet (Advil Dual Action) tirzepatide 5 mg/0.5 mL 5 mg subcut WK 03/19/25 03/28/25 History subcutaneous pen injector (Al) carbidopa 25 mg-levodopa 100 mg 1 tab PO TID #1 tab 03/21/25 03/28/25 Rx tablet (Dhivy) cyclobenzaprine 10 mg tablet 10 mg PO TID PRN muscle spasm 1 03/21/25 03/28/25 Rx month #90 tabs dexamethasone 4 mg tablet 4 mg PO BID severe cancer pain 1 03/21/25 03/28/25 Rx month #60 tabs oxycodone 15 mg tablet 15 mg PO Q4H PRN cancer related 03/21/25 03/28/25 Rx pain 30 days #180 tabs lidocaine 5 % topical patch 1 patch topical DAILY #30 ea 03/24/25 03/28/25 Rx lorazepam 0.5 mg tablet 0.5 mg buccal DIRECTED PRN 03/24/25 03/28/25 History NEEDED naloxone 4 mg/actuation nasal 1 spray intranasal ONCE PRN opioid 03/24/25 03/28/25 Rx spray (Narcan) overdose #2 ea lorazepam 1 mg tablet (Ativan) 1 mg PO Q8H PRN SPASMS AND anxiety 03/28/25 03/28/25 Rx 1 month #90 tabs ampicillin 500 mg capsule 500 mg PO TID 14 days #42 caps 03/29/25 Rx Patient History Medical History Raynauds disease Parkinson's disease HTN (hypertension) MARISABEL (obstructive sleep apnea) Barretts esophagus Hypothyroidism Obesity Personal history of diabetic foot ulcer Diabetic peripheral neuropathy associated with type 2 diabetes mellitus High cholesterol Surgical History Hx of colonoscopy 2024 H/O arthroscopy of right knee History of neck surgery Wore Halo d/t "broken neck" - no surgery Family History Mother No problems noted. Father , 65yo Myocardial infarction Hypertension Diabetes Bladder cancer Sister History of renal ablation Son No problems noted. Son No problems noted. Social History Smoking Status: Former smoker Tobacco Type: Cigarettes and Smokeless Tobacco (Dip or Chew) Age Started Using Tobacco: 19; Age Quit Using Tobacco: 24; Second Hand Exposure: Yes; Do You Dip or Chew Tobacco: Yes; Hx Alcohol Use: Yes Alcohol type: beer Alcohol Intake Frequency: 2-4 x/Month Hx Substance Use: No Preferred Language: Amharic Communication Ability: Effective Visual Impairment: No Limitations Hearing Ability: Normal Survey Superintendent Required: No Beliefs That Will Affect Care: None marital status: Current Living Situation: Significant Other current occupational status: employed 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 How many Children do You have: 2 Feels Safe at Home: Yes Safety Concerns: Feels Safe At This Time Diet: regular caffeine: Yes (1-2 cups/day) during the past year weight has: remained stable Assistive Devices: None Review of Systems Review of Systems: All systems reviewed & are unremarkable except as noted in HPI & below Constitutional: as per Subjective / HPI Eyes: as per Subjective / HPI Ear, Nose, Mouth, Throat: as per Subjective / HPI Respiratory: as per Subjective / HPI Cardiovascular: as per Subjective / HPI Gastrointestinal: as per Subjective / HPI Genitourinary: + as per Subjective / HPI Musculoskeletal: as per Subjective / HPI Integumentary: as per Subjective / HPI Neurologic: as per Subjective / HPI Psychiatric: as per Subjective / HPI Endocrine: as per Subjective / HPI Physical Exam Constitutional: WD/WN, vitals as above Eyes: PERRL, conjunctivae normal, anicteric sclerae ENMT: external ear and nose normal, oropharynx normal Neck: trachea midline, no thyromegaly Respiratory: normal respiratory effort, lungs clear to auscultation Cardiovascular: RRR, no murmur, no edema Gastrointestinal (Abdomen): normal bowel sounds, soft, nontender, no hepatosplenomegaly Musculoskeletal: no cyanosis or clubbing, extremities motor strength 5/5 Skin: no rashes, warm and dry Neurologic: patellar DTR's 2+ bilat, sensation intact Psychiatric: A+Ox3, euthymic affect Genitourinary: no testicular masses, no penis abnormality Results & Data Vital Signs (Past 12 Hours) Vital Signs Temp Pulse Pulse Resp BP Pulse Ox O2 Del Method 03/30/25 15:39 92 H 03/30/25 15:20 36.6 C 83 18 145/82 H 98 Room Air 03/30/25 12:00 36.8 C 78 19 148/80 H 96 Room Air 03/30/25 08:45 36.9 C 80 18 153/82 H 97 Room Air 03/30/25 07:31 64 03/30/25 04:00 36.4 C L 66 20 149/83 H 96 Room Air
[2025-03-31 05:58] LABS: Hematocrit (blood only) 38.9 % (42.0-52.0); Hemoglobin 13.5 g/dL (14.0-18.0); Mean Corpuscular Hemoglobin 29.6 pg (25.0-34.0); Mean Corpuscular Volume 85.3 fL (80.0-100.0); Platelet Count 393 K/uL (130-400); RDW Standard Deviation 39.0 fL (36.4-46.3); Red Blood Count 4.56 M/uL (4.70-6.10); White Blood Count 18.04 K/ul (4.8-10.8)
[2025-03-31 06:16] LABS: Anion Gap 10.0 (3-11); Blood Urea Nitrogen 29.0 mg/dl (6-23); Calcium 9.2 mg/dl (8.6-10.3); Carbon Dioxide 28.0 mmol/L (21-32); Chloride 92.0 mmol/L (98-107); Creatinine Clr Calc Pharmacy 152.2 ml/min; Glucose 104.0 mg/dl (70-99(Fasting)); Potassium 4.5 mmol/L (3.5-5.1); Sodium 130.0 mmol/L (136-145)
--- NOTE | 2025-03-31 09:15 | Hospitalist Progress Note ---
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 Still with severe, incapacitating pain. Reports he has not been able to stand or walk for the last several days. 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 #Malignant Neoplasm of Unknown Primary with Metastasis to Bone / Pathology suggests adenocarcinoma, with mest to the bones PET scan shows evidence of extensive metastatic disease with mets to the skeletal hepatic muscular soft tissue nodule bilateral adrenal right renal and right cerebellar metastasis. Also femoral neck lesions and right lower lobe lesions. currently undergoing pallaitive radiotion, However patient refused radiation yesterday and said he was afraid. Consult hematology and oncology Pathological fracture Likely pathological fracture of L3 Per spine surgery, patient would benefit from brace #Diabetes -Hold Mounjaro - may be contributing in part to patient's constipation -Insulin sliding scale - CF 20, CR 10 -Goal blood sugar 110 - 160 #Hypertension -Continue Losartan/HCTZ for now #GERD -Protonix 40mg po daily #Hypothyroidism -Continue Synthroid 127mcg po daily #Parkinson's Disease -Continue Carbidopa-Levodopa #Hyperlipidemia -Continue Atorvastatin Ppx - Lovenox 40mg SQ daily Code - DNR Disposition: He will continue radiation therapy till Tuesday, however patient wants to be discharged tomorrow Tuesday so he can continue to receive therapy outpatient and also see oncology to start palliative chemotherapy Admission and Anticipated Discharge Date Admission Date: March 28, 2025 Subjective patient seen and examined, his pain is now under better control following SPRING ASSEMBLER dilaudid, Agreed to go down today for radiation therapy Review of Systems Review of Systems: All systems reviewed are negative, apart from the ones contained in the history. Physical Exam Physical Exam: The patient is awake, alert and oriented 3, well developed and well nourished, normocephalic and atraumatic, lying in bed and in no acute distress. HEENT--PERRL, EOMI, mucous membranes and oropharynx mildly dry Neck--supple. No JVD. No bruits. Thyroid normal, trachea midline, no adenopathy. Heart--normal S1 and S2. No murmurs, rubs or gallops. Lungs--clear bilaterally, no respiratory distress, no accessory muscle use. Abdomen--normal bowel sounds and soft. Extremities--no cyanosis or clubbing. No edema. Dermatologic--normal skin turgor, normal color, no abnormal lymph nodes, no rash. Neurologic--cranial nerves II through XII grossly intact. Rheumatologic--normal range of motion. Psychiatric--normal affect. Results & Data Results & Data Vital Signs (Past 12 Hours) Vital Signs Temp Pulse Pulse Resp BP Pulse Ox O2 Del Method 03/31/25 07:28 98.2 F 67 18 155/91 H 98 Room Air 03/31/25 07:17 66 03/31/25 04:16 97.9 F 66 20 160/84 H 95 CPAP 03/31/25 03:37 72 15 96 03/31/25 00:00 69 14 96 03/30/25 23:30 97.3 F L 77 20 143/81 H 98 Room Air FiO2 03/31/25 07:28 03/31/25 07:17 03/31/25 04:16 03/31/25 03:37 03/31/25 00:00 21 03/30/25 23:30 PG Care Time/CCT Total # of Minutes Spent Total Time Spent with Patient: Total time spent is greater than 50% in coordination of care (as documented) at patient's floor/unit and/or counseling patient: Coding Level of Care Code 13969 SUB INP/OBS CARE 2/35MIN Diagnoses 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 unknown primary site C79.89; C80.1 HTN (hypertension) I10 High cholesterol E78.00 Hypothyroidism E03.9 MARISABEL (obstructive sleep apnea) G47.33 Parkinson's disease G20.A1 Diabetes E11.9 Time Spent (min) 35
[2025-03-31] MEDS: LIDOCAINE 5% 1 PATCH TD SCH (10:51)
[2025-04-01 05:46] LABS: Hematocrit (blood only) 39.1 % (42.0-52.0); Hemoglobin 13.8 g/dL (14.0-18.0); Mean Corpuscular Hemoglobin 29.9 pg (25.0-34.0); Mean Corpuscular Volume 84.8 fL (80.0-100.0); Platelet Count 372 K/uL (130-400); RDW Standard Deviation 39.0 fL (36.4-46.3); Red Blood Count 4.61 M/uL (4.70-6.10); White Blood Count 17.30 K/ul (4.8-10.8)
[2025-04-01 06:00] LABS: Anion Gap 9.0 (3-11); Blood Urea Nitrogen 29.0 mg/dl (6-23); Calcium 9.4 mg/dl (8.6-10.3); Carbon Dioxide 27.0 mmol/L (21-32); Chloride 92.0 mmol/L (98-107); Creatinine Clr Calc Pharmacy 144.2 ml/min; Glucose 98.0 mg/dl (70-99(Fasting)); Potassium 4.4 mmol/L (3.5-5.1); Sodium 128.0 mmol/L (136-145)
--- NOTE | 2025-04-01 09:05 | Orthopedic Consultation ---
Date of Service April 01, 2025 Assessment & Plan (1) Pain from bone metastases: (2) Osteolytic lesion due to metastasis with unknown primary site: Plan * Case/imaging reviewed and discussed with Dr Stahl * XR pelvis, hips, femur pending * Case and imaging to be reviewed further with Dr. Stahl once available. Anticipate in person evaluation with him 04/02 * Possible prophylactic fixation of left femur later this week * Weight bearing status: WBAT bilateral LE * Daily treatment: Physical Therapy/ Occupational Therapy per protocol * Pain control * Disposition: TBD * Remainder care per primary team * Will continue to follow and update plan as available History of Present Illness Reason for Consultation: L femoral neck metastatic lesion Requesting Physician: . Attending Physician: Robbie Fragoso MD Patient is a 60 y/o male with bony mets. PMH including recently diagnosed metastatic malignancy of unknown primary with lesion to bone, liver, kidney, brain, soft tissue as well as HTN, HLP, DM, Hypothyroidism. Presents to hospital with poorly controlled pain secondary to malignancy. First seen in ED 03/08 and found evidence of metastatic disease. Recently started radiation therapy for L3 lesion. Current workup including PET CT 03/28 demonstrates L3 pathologic fracture, as well as left femoral neck lesion. Ortho consulted regarding L femoral neck lesion and risk stratification for possible prophylactic fixation. At time of exam patient sitting comfortably in bed, no acute distress. TLSO brace was fitted over the weekend. Reports constant moderate to severe low back pain, as well as alternating right and left hip pain. Historically his left hip has bothered him more, currently his right hip is causing pain. Pain is primarily when weight bearing and improves with rest. Denies tingling or numbness of bilateral lower extremity. Allergies Allergy/AdvReac Type Severity Reaction Status Date / Time No Known Allergies Allergy Verified 03/28/25 21:01 Home Medications Medication Instructions Recorded Confirmed Type atorvastatin 40 mg tablet 40 mg PO DAILY 08/12/22 03/28/25 History furosemide 40 mg tablet (Lasix) 40 mg PO DAILY 08/12/22 03/28/25 History levothyroxine 175 mcg capsule 175 mcg PO DAILY 08/12/22 03/28/25 History losartan 50 mg-hydrochlorothiazide 1 tab PO DAILY 08/12/22 03/28/25 History 12.5 mg tablet (Hyzaar) multivitamin (One Daily 1 tab PO QAM 08/12/22 03/28/25 History Multivitamin tablet) omeprazole 20 mg capsule,delayed 20 mg PO DAILY 08/12/22 03/28/25 History release ibuprofen 125 mg-acetaminophen 250 3 tab PO Q8H PRN Pain 03/19/25 03/28/25 History mg tablet (Advil Dual Action) tirzepatide 5 mg/0.5 mL 5 mg subcut WK 03/19/25 03/28/25 History subcutaneous pen injector (Mounjaro) carbidopa 25 mg-levodopa 100 mg 1 tab PO TID #1 tab 03/21/25 03/28/25 Rx tablet (Dhivy) cyclobenzaprine 10 mg tablet 10 mg PO TID PRN muscle spasm 1 03/21/25 03/28/25 Rx month #90 tabs dexamethasone 4 mg tablet 4 mg PO BID severe cancer pain 1 03/21/25 03/28/25 Rx month #60 tabs oxycodone 15 mg tablet 15 mg PO Q4H PRN cancer related 03/21/25 03/28/25 Rx pain 30 days #180 tabs lidocaine 5 % topical patch 1 patch topical DAILY #30 ea 03/24/25 03/28/25 Rx lorazepam 0.5 mg tablet 0.5 mg buccal DIRECTED PRN 03/24/25 03/28/25 History NEEDED naloxone 4 mg/actuation nasal 1 spray intranasal ONCE PRN opioid 03/24/25 03/28/25 Rx spray (Narcan) overdose #2 ea lorazepam 1 mg tablet (Ativan) 1 mg PO Q8H PRN SPASMS AND anxiety 03/28/25 03/28/25 Rx 1 month #90 tabs ampicillin 500 mg capsule 500 mg PO TID 14 days #42 caps 03/29/25 Rx Past Med/Surg History Problem List (Updated 04/01/25 @ 09:02 by David Willis PA-C) Osteolytic lesion due to metastasis with unknown primary site L3 vertebral fracture Diabetes Advanced care planning/counseling discussion (Acute) Anxiety Diabetic foot ulcer (Acute) 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 unknown primary site (Acute) PETCT 03/28/25: 1. Extensive FDG avid metastatic disease, as detailed above. This includes skeletal, hepatic, muscular, soft tissue, [place], bilateral adrenal, right renal and right cerebellar metastases. 2. FDG avid left femoral neck lesion which measures approximately 2.8 cm. This increases risk for a pathologic fracture. L3 vertebral body metastasis with pathologic fracture. 3. 3.4 cm irregular right lower lobe FDG avid mass. Although not definitive, this favors a primary tumor. Acute hyperglycemia (Acute) Leukocytosis (Acute) Back pain, lumbosacral Back muscle spasm Palliative care by specialist (Acute) Lumbar pain (Acute) Cancer related pain (Acute) Pain from bone metastases (Chronic) Medical History Raynauds disease Parkinson's disease HTN (hypertension) MARISABEL (obstructive sleep apnea) Barretts esophagus Hypothyroidism Obesity Personal history of diabetic foot ulcer Diabetic peripheral neuropathy associated with type 2 diabetes mellitus High cholesterol Surgical History Hx of colonoscopy 2024 H/O arthroscopy of right knee History of neck surgery Wore Halo d/t "broken neck" - no surgery Family History Mother No problems noted. Father , 65yo Myocardial infarction Hypertension Diabetes Bladder cancer Sister History of renal ablation Son No problems noted. Son No problems noted. 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 Physical Exam . * General: Alert and oriented, no acute distress * Constitutional: well-developed, well-nourished. * Respiratory: Normal respiratory effort, no distress * Gastrointestinal: No tenderness to palpation, no rigidity or guarding. * Skin: No rash or lesion. * Neurologic: Grossly normal * Musculoskeletal: Bilateral hip region without any obvious deformity or overlying skin changes. No specific tenderness of the bilateral anterior hip, lateral hip, or proximal thigh regions. No pain with logroll bilaterally. AROM hip flexion, knee extension, ankle plantar/dorsiflexion intact. Sensation intact plantar/dorsal foot. Brisk capillary refill. Results & Data Results & Data Laboratory Results . Diagnostic Findings 03/28/[address] IMPRESSION: 1. Extensive FDG avid metastatic disease, as detailed above. This includes skeletal, hepatic, muscular, soft tissue, [place], bilateral adrenal, right renal and right cerebellar metastases. 2. FDG avid left femoral neck lesion which measures approximately 2.8 cm. This increases risk for a pathologic fracture. L3 vertebral body metastasis with pathologic fracture. 3. 3.4 cm irregular right lower lobe FDG avid mass. Although not definitive, this favors a primary tumor. PG Care Time/CCT Total # of Minutes Spent Total Time Spent with Patient: Total time spent is greater than 50% in coordination of care (as documented) at patient's floor/unit and/or counseling patient: C[place] [address] IN/OBS CONSULT LVL 5,80M Patient Type Established History Expanded Problem Focused Exam Expanded Problem Focused Medical Decision Making High Complexity Diagnoses Pain from bone metastases G89.3; C79.51 Osteolytic lesion due to metastasis with unknown primary site C79.51; C80.1
--- NOTE | 2025-04-01 11:12 | Hospitalist Progress Note ---
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 Also femoral neck lesions and right lower lobe lesions. currently undergoing palliative radiation, However patient refused radiation yesterday and said he was afraid. Consulted hematology and oncology (4) Lumbar pain: Plan: 03/28/25, PETCT: 1. Extensive FDG avid metastatic disease, as detailed above. This includes skeletal, hepatic, muscular, soft tissue, [place], bilateral adrenal, right renal and right cerebellar metastases. 2. FDG avid left femoral neck lesion which measures approximately 2.8 cm. This increases risk for a pathologic fracture. L3 vertebral body metastasis with pathologic fracture. 3. 3.4 cm irregular right lower lobe FDG avid mass. Although not definitive, this favors a primary tumor. Likely pathological fracture of L3 Per spine surgery, patient would benefit from brace (5) Anxiety: Plan: prn lorazepam was in use prior to admission with relief however pain was uncontrolled Now that pain has improved, his anxiety is reduced and we are avoiding concomitant opioid + Benzo use Admission and Anticipated Discharge Date Admission Date: March 28, 2025 Subjective No events overnight. Pt resting comfortably in bed. Review of Systems Review of Systems: CONST: Negative for fever, body aches and chills. HENT: Negative for neck pain/stiffness, headache, congestion, sore throat, swelling. EYES: Negative for discharge/pain or vision changes. RESP: Negative for cough/hemoptysis and shortness of breath. CV: Negative chest pain, difficulty breathing, palpitations. ABD: Negative pain, nausea, vomiting. : Negative increase frequency, dysuria, blood in urine or stool. MUSC: Negative for muscle aches, edema. SKIN: Negative rash, lesions/sores. NEURO: Negative headache, dizziness, weakness. Physical Exam Physical Exam: GENERAL APPEARANCE NAD, activity normal for age, well developed/ well nourished, no cyanosis, pallor, or diaphoresis. EYES lids/conjunctiva normal. EARS/NOSE/THROAT Mucous membranes moist, nares normal, lips/teeth normal uvula midline without oral pharyngeal erythema, exudate or swelling TMs normal bilaterally. No lymphangitis/lymphedema. HEAD/NECK normocephalic atraumatic, no facial trauma, neck is supple. RESPIRATORY respiratory effort normal, speaks in full sentences, no tripod position, no accessory muscle use. Lungs clear to auscultation without rhonchi, wheezes, rales CARDIAC Regular rate and rhythm, no edema. ABDOMINAL Soft, ND/NT. No evidence of fluid wave. No pulsatile masses on exam, rebound tenderness, Nogueira sign or pain over Mcburney's point. MUSCLES/EXTREMITIES No abnormal range of motion, no swelling. SKIN Warm, pink and dry. No rashes, dermatoses, petechiae or lesions. NEUROLOGICAL Speech is clear and appropriate. Normal level of consciousness. Gait and coordination are normal. 5/5 strength in all extremities. PSYCH Normal mood and affect. Judgement/competence is appropriate Results & Data Results & Data Vital Signs (Past 12 Hours) Vital Signs Temp Pulse Pulse Resp BP Pulse Ox O2 Del Method 04/01/25 07:16 36.6 C 82 18 134/76 97 CPAP 04/01/25 04:53 37.2 C 62 16 162/78 H 96 CPAP 04/01/25 03:02 71 16 97 03/31/25 23:20 70 14 98 FiO2 04/01/25 07:16 04/01/25 04:53 04/01/25 03:02 21 03/31/25 23:20 21 PG Care Time/CCT Total # of Minutes Spent Total Time Spent with Patient: Total time spent is greater than 50% in coordination of care (as documented) at patient's floor/unit and/or counseling patient: Coding Level of Care Code 96732 SUB INP/OBS CARE 2/35MIN Diagnoses Cancer related pain G89.3 Pathologic femoral fracture M84.453A 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 unknown primary site C79.89; C80.1 Lumbar pain M54.50 Anxiety F41.9
--- NOTE | 2025-04-01 11:39 | Palliative Care Progress Note ---
Date of Service April 01, 2025 Assessment & Plan (1) Cancer related pain: Plan: Continue FOREST FIRE OFFICER Dilaudid demand dose 0.3mg Q20min PRN, continuous rate 0.2mg/hr Reinforced importance of PROPHYLACTIC OIC regimen and adequate hydration (2) Lumbar pain: Plan: 03/28/25, PETCT: 1. Extensive FDG avid metastatic disease, as detailed above. This includes skeletal, hepatic, muscular, soft tissue, [place], bilateral adrenal, right renal and right cerebellar metastases. 2. FDG avid left femoral neck lesion which measures approximately 2.8 cm. This increases risk for a pathologic fracture. L3 vertebral body metastasis with pathologic fracture. 3. 3.4 cm irregular right lower lobe FDG avid mass. Although not definitive, this favors a primary tumor. Appreciate ortho/spine recs; ortho surg consult pending (3) Palliative care by specialist: Plan: Palliative care will continue to follow for ongoing symptom management and patient/family support. (4) Back muscle spasm: (5) Anxiety: Plan: Resolved prn lorazepam was in use prior to admission with relief however pain was uncontrolled Now that pain has improved, his anxiety is reduced and we are avoiding concomitant opioid + Benzo use (6) 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 unknown primary site: (7) Counseling regarding goals of care: Plan: Met with patient and his s.o Bruno and son Saqib at bedside. Patient shared that he had discussed GOC with his attending Dr Fragoso today and he does not wish to pursue any further palliative radiation. He shared that he is happy with his current pain management with the FOREST FIRE OFFICER and does not wish for further cancer treatment given his short life expectancy. I questioned if he has been given any prognostication and if he wishes for this information. He jovially stated that he has "a direct line and knows when (he) will " he shared that he has put the date on his calendar. I encouraged that he discuss prognostication with his oncology team, as Dr Reese will have the best information on prognostication and how different treatment options might extend prognosis vs palliate symptoms of his disease. Bruno shared that she was hoping to discuss going home with hospice with CM today. Saqib shared that he is pleased with pt's level of alertness with appropriate pain management and he is hopeful that they can continue FOREST FIRE OFFICER at home. We discussed other possible routes of dilaudid administration as well as ability to offer effective long acting opiate analgesia in form of TD fentanyl or other long acting opiates. We discussed the goal of palliative radiation and hopes of reducing opiate requirements. Patient shared that he is aware that any cancer treatments would ultimately not cure his cancer and he is afraid that "chasing treatment" will keep him in the hospital. He stated "radiation is not for me" and "I have decided I just want to be kept comfortable and allowed to naturally". Bruno shared that they have discussed with CM some DME, hospital bed and wheelchair, that they will need prior to going home. She shared that she would like to discuss this as well as adding hospice to his care at home with CM today. We discussed option of continuing current level of care (including cancer directed treatment, and potential for prophylactic fixation of left femur lesion by orthopaedic surgery) vs transition to comfort directed care. Helped them understand that comfort care/hospice care would mean forgoing any further cancer directed or life prolonging treatments but would focus on managing his symptoms while allowing for a natural . We discussed that FOREST FIRE OFFICER may not be feasible outside of the hospital but that we could investigate possibility and offered reassurance that we can transition onto a form of opiate that he can receive in the home environment regardless of level of care he chooses. Helped patient and family understand that palliation of pain will be a priority regardless of level of care chosen. Case management entered room during this portion of conversation and Bruno requested referral to [facility] hospice to offer them additional information as they make decisions. I again encouraged that they discuss ongoing cancer directed treatment options and prognostication with and without treatment with his oncologist, as well as discussing potential options for prophylactic treatments that may be offered by orthopaedic surgery team. Patient shared that he is "not excited about" prospective surgery, but would like to know his options. He is focused on returning home with adequate pain management as a goal. We agreed to revisit [facility] after pt has had opportunity to discuss all treatment options with both Dr Reese and dot. No changes in level of care - DNR/DNI, but continue all other life prolonging therapies at this time. Overall time in ACP discussion was 30 minutes. Plan As above Admission and Anticipated Discharge Date Admission Date: March 28, 2025 Subjective Assessed pt at bedside, and son present. He AAOx4 and shared that his pain has been well managed over weekend. ERICK MARSHALL. Patient shared that he continues to have sharp pain with any movement, but it is fleeting and overall his pain is well managed with FOREST FIRE OFFICER. Review of Systems Review of Systems: All systems reviewed & are unremarkable except as noted in Subjective Physical Exam Constitutional: WD/WN, vitals as above no acute distress Eyes: PERRL, conjunctivae normal, anicteric sclerae Neck: trachea midline, no thyromegaly Cardiovascular: RRR, no murmur, no edema Gastrointestinal (Abdomen): normal bowel sounds, soft, nontender, no hepatosplenomegaly Skin: no rashes, warm and dry Psychiatric: A+Ox3, euthymic affect Results & Data Vital Signs (Past 12 Hours) Vital Signs Temp Pulse Pulse Resp BP Pulse Ox O2 Del Method 04/01/25 07:16 36.6 C 82 18 134/76 97 CPAP 04/01/25 04:53 37.2 C 62 16 162/78 H 96 CPAP 04/01/25 03:02 71 16 97 03/31/25 23:20 70 14 98 03/31/25 23:00 36.7 C 66 16 131/71 96 Room Air FiO2 04/01/25 07:16 04/01/25 04:53 04/01/25 03:02 21 03/31/25 23:20 21 03/31/25 23:00 Laboratory Results Abnormal lab results 03/31/25 03/31/25 04/01/25 Range/Units 16:39 20:44 05:11 WBC 17.30 H (4.8-10.8) K/ul RBC 4.61 L (4.70-6.10) M/uL Hgb 13.8 L (14.0-18.0) g/dL Hct 39.1 L (42.0-52.0) % Sodium 128 L (136-145) mmol/L Chloride 92 L (98-107) mmol/L BUN 29 H (6-23) mg/dl BUN/Creatinine Ratio 38.2 H (10-20) POC Glucose 160 H 148 H (70-99) mg/dl 04/01/25 Range/Units 07:49 WBC (4.8-10.8) K/ul RBC (4.70-6.10) M/uL Hgb (14.0-18.0) g/dL Hct (42.0-52.0) % Sodium (136-145) mmol/L Chloride (98-107) mmol/L BUN (6-23) mg/dl BUN/Creatinine Ratio (10-20) POC Glucose 69 L* (70-99) mg/dl Medications Administered Current Inpatient Medications Acetaminophen (Acetaminophen 325 Mg Tab) 650 mg PO Q4H PRN PRN Reason: Pain or Fever Stop: 04/28/25 00:31 Al Hydrox/Mg Hydrox/Simethicone (Aluminum/Magnesium Susp 30 Ml Udc) 15 ml PO Q6H PRN PRN Reason: heartburn Stop: 04/27/25 22:59 Last Admin: 03/29/25 06:11 Dose: 15 ml Atorvastatin Calcium (Atorvastatin 40 Mg Tab) 40 mg PO DAILY MANISH Stop: 04/28/25 08:59 Last Admin: 04/01/25 08:18 Dose: 40 mg Carbidopa/Levodopa (Carbidopa/Levodopa 25/100mg Tab) 1 tab PO TID MANISH Stop: 04/28/25 08:59 Last Admin: 04/01/25 08:18 Dose: 1 tab Cephalexin HCl (Cephalexin 500 Mg Cap) 500 mg PO QID MANISH; Protocol Stop: 04/05/25 16:59 Last Admin: 04/01/25 08:18 Dose: 500 mg Dexamethasone (Dexamethasone 4 Mg Tab) 4 mg PO DAILY MANISH Stop: 04/28/25 08:59 Last Admin: 04/01/25 08:18 Dose: 4 mg Dextrose (Dextrose 50% 50 Ml Syringe) 25 - 50 ml IV UD PRN; Protocol PRN Reason: Hypoglycemia Protocol Stop: 04/28/25 00:31 Enoxaparin Sodium (Enoxaparin Inj 40 Mg/0.4 Ml Syr) 40 mg SQ Q24H MANISH Stop: 04/28/25 08:59 Last Admin: 04/01/25 08:18 Dose: 40 mg Furosemide (Furosemide 40 Mg Tab) 40 mg PO DAILY MANISH Stop: 04/28/25 08:59 Last Admin: 04/01/25 08:18 Dose: 40 mg Glucagon (Glucagon For Inj 1 Mg Vial) 1 mg SQ UD PRN; Protocol PRN Reason: Hypoglycemia Protocol Stop: 04/28/25 00:31 Glucose (Glucose 40% Gel 15 Gm Tube) 15 - 30 gm PO UD PRN; Protocol PRN Reason: Hypoglycemia Protocol Stop: 04/28/25 00:31 Glucose (Glucose 10 Tab/Tube) 4 - 8 tab PO UD PRN; Protocol PRN Reason: Hypoglycemia Protocol Stop: 04/28/25 00:31 HCTZ/Losartan Potassium (Losartan/Hctz 50/12.5mg Tab) 1 tab PO DAILY MANISH Stop: 04/28/25 08:59 Last Admin: 04/01/25 08:20 Dose: 1 tab Hydromorphone HCl (Hydromorphone Salesperson Handbags 30 Mg/30 Ml) 30 mg IV PRN PRN; Protocol PRN Reason: FOREST FI[employer] OFFICER Pain Titration Stop: 04/12/25 01:04 Last Admin: 04/01/25 08:00 Dose: 30 mg Sodium Chloride (Nss) 1,000 mls @ 15 mls/hr IV .Q24H MANISH Stop: 04/12/25 01:05 Last Admin: 03/31/25 19:54 Dose: 15 mls/hr Insulin Aspart (Insulin Aspart Per Unit Charge) 0 units SC ACHS MANISH Stop: 04/28/25 07:29 Last Admin: 04/01/25 08:52 Dose: 4 units Levothyroxine Sodium (Levothyroxine Sodium 175 Mcg Tablet) 175 mcg PO DAILYBB MANISH Stop: 04/28/25 06:29 Last Admin: 04/01/25 05:37 Dose: 175 mcg Lidocaine (Lidocaine 5% 1 Patch) 2 patch TD DAILY MANISH Stop: 04/30/25 09:44 Last Admin: 04/01/25 08:23 Dose: Not Given Miscellaneous (Remove Lidoderm Patch) 1 each N/A DAILY@2100 [facility] Stop: 04/28/25 20:59 Last Admin: 03/31/25 21:18 Dose: 1 each Miscellaneous (Carbohydrates For Hypoglycemia ) 15 - 30 gm PO UD PRN PRN Reason: Hypoglycemia Protocol Stop: 04/28/25 00:31 Naloxone HCl (Naloxone Hcl 0.4 Mg/1 Ml Vial/Carp) 0.1 mg IV Q5M PRN; Protocol PRN Reason: Oversedation/Resp Depression Stop: 04/12/25 01:04 Ondansetron HCl (Ondansetron Inj 2 Mg/Ml 2 Ml Vial) 4 mg IV Q6H PRN PRN Reason: Nausea And Vomiting Stop: 04/28/25 00:31 Last Admin: 03/29/25 01:19 Dose: 4 mg Pantoprazole Sodium (Pantoprazole 40 Mg Tab) 40 mg PO DAILY MANISH Stop: 04/28/25 08:59 Last Admin: 04/01/25 08:18 Dose: 40 mg Polyethylene Glycol (Polyethylene (Miralax) 17 Gm Pack) 17 gm PO BID PRN PRN Reason: Constipation Stop: 04/28/25 00:31 Last Admin: 03/30/25 12:38 Dose: 17 gm Senna/Docusate Sodium (Docusate Sodium/Senna 50/8.6mg Tab) 1 tab PO QAM MANISH Stop: 04/28/25 08:59 Last Admin: 04/01/25 08:19 Dose: Not Given PG Care Time/CCT Total # of Minutes Spent Total Time Spent with Patient: Total time spent is greater than 50% in coordination of care (as documented) at patient's floor/unit and/or counseling patient: Advanced Care Planning 03578 Advanced Care Planning 30 Min C[place] [address] SUB INP/OBS CARE 2/35MIN Patient Type Established History Expanded Problem Focused Exam Expanded Problem Focused Medical Decision Making Moderate Complexity Diagnoses Cancer related pain G89.3 Lumbar pain M54.50 Palliative care by specialist Z51.5 Back muscle spasm M62.830 Anxiety F41.9 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 unknown primary site C79.89; C80.1 Counseling regarding goals of care Z71.89 Additional Codes Advanced Care Planning - 47418 Advanced Care Planning 30 Min: 78432 Advanced Care Planning 30 Min ([id number])
--- NOTE | 2025-04-01 18:48 | XRay Report ---
Clinical History: Evaluate bony lesion 2 views of the pelvis and right hip are submitted for review. Comparison is made to the CT dated 03/24/2025 Findings: An area of heterogeneous lytic and sclerotic change in the lateral left ilium is not as evident by radiographs No fracture or dislocation is seen. There is mild right hip osteoarthritis. No other osseous abnormality is identified. There are no radiopaque foreign bodies. Impression: 1. Mild right hip osteoarthritis 2. Area of mixed lytic and sclerotic change in the left ilium, better seen by recent CT. This is indeterminate in nature and metastatic disease cannot be excluded ACT 112: Positive. There are findings on this exam that require communication between the performing entity and the patient following Patient Test Result Information Act ([place] ACT 112) guidelines. Electronically signed by Kenneth Goncalves 04-01-2025 6:47 PM
[2025-04-01] MEDS: HYDROmorphone 100 MG/100 ML BAG IV SCH (19:27)
[2025-04-02] MEDS: DOCUSATE SODIUM/SENNA 50/8.6MG TAB PO SCH (08:23)
--- NOTE | 2025-04-02 09:24 | Hospitalist Progress Note ---
Date of Service April 02, 2025 Assessment & Plan (1) Cancer related pain: Plan: Gentle increase to HEALTH SYSTEMS ANALYST demand dose of Dilaudid from 0.2mg to 0.3mg Q20min, NO change to continuous rate OIC regimen reinforced Encouraged adequate hydration Palliative care consulted, awaiting pain medication recommendations Awaiting Dr. 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 Also femoral neck lesions and right lower lobe lesions. currently undergoing palliative radiation, However patient refused radiation yesterday and said he was afraid. Consulted hematology and oncology (4) Lumbar pain: Plan: 03/28/25, PETCT: 1. Extensive FDG avid metastatic disease, as detailed above. This includes skeletal, hepatic, muscular, soft tissue, [place], bilateral adrenal, right renal and right cerebellar metastases. 2. FDG avid left femoral neck lesion which measures approximately 2.8 cm. This increases risk for a pathologic fracture. L3 vertebral body metastasis with pathologic fracture. 3. 3.4 cm irregular right lower lobe FDG avid mass. Although not definitive, this favors a primary tumor. Likely pathological fracture of L3 Per spine surgery, patient would benefit from brace (5) Anxiety: Plan: prn lorazepam was in use prior to admission with relief however pain was uncontrolled Now that pain has improved, his anxiety is reduced and we are avoiding concomitant opioid + Benzo use Admission and Anticipated Discharge Date Admission Date: March 28, 2025 Subjective Pt stating he still is experiencing back pain. Does not want any surgery for his leg. Requesting to speak with Dr. Reese for continuing forward with radiation. Review of Systems Review of Systems: CONST: Negative for fever, body aches and chills. HENT: Negative for neck pain/stiffness, headache, congestion, sore throat, swelling. EYES: Negative for discharge/pain or vision changes. RESP: Negative for cough/hemoptysis and shortness of breath. CV: Negative chest pain, difficulty breathing, palpitations. ABD: Negative pain, nausea, vomiting. : Negative increase frequency, dysuria, blood in urine or stool. MUSC: Negative for muscle aches, edema. SKIN: Negative rash, lesions/sores. NEURO: Negative headache, dizziness, weakness. Physical Exam Physical Exam: GENERAL APPEARANCE NAD, activity normal for age, well developed/ well nourished, no cyanosis, pallor, or diaphoresis. EYES lids/conjunctiva normal. EARS/NOSE/THROAT Mucous membranes moist, nares normal, lips/teeth normal uvula midline without oral pharyngeal erythema, exudate or swelling TMs normal bilaterally. No lymphangitis/lymphedema. HEAD/NECK normocephalic atraumatic, no facial trauma, neck is supple. RESPIRATORY respiratory effort normal, speaks in full sentences, no tripod position, no accessory muscle use. Lungs clear to auscultation without rhonchi, wheezes, rales CARDIAC Regular rate and rhythm, no edema. ABDOMINAL Soft, ND/NT. No evidence of fluid wave. No pulsatile masses on exam, rebound tenderness, Nogueira sign or pain over Mcburney's point. MUSCLES/EXTREMITIES No abnormal range of motion, no swelling. SKIN Warm, pink and dry. No rashes, dermatoses, petechiae or lesions. NEUROLOGICAL Speech is clear and appropriate. Normal level of consciousness. Gait and coordination are normal. 5/5 strength in all extremities. PSYCH Normal mood and affect. Judgement/competence is appropriate Results & Data Results & Data Vital Signs (Past 12 Hours) Vital Signs Temp Pulse Pulse Resp BP Pulse Ox O2 Del Method 04/02/25 07:51 75 04/02/25 07:14 36.6 C 62 18 132/83 98 Room Air 04/02/25 02:26 36.6 C 57 L 19 148/78 H 96 BiPAP 04/02/25 02:05 15 92 04/01/25 22:34 36.8 C 73 19 128/79 95 Room Air 04/01/25 22:25 56 L 13 95 04/01/25 22:12 Room Air, BiPAP 04/01/25 21:30 80 FiO2 04/02/25 07:51 04/02/25 07:14 04/02/25 02:26 04/02/25 02:05 21 04/01/25 22:34 04/01/25 22:25 21 04/01/25 22:12 04/01/25 21:30 PG Care Time/CCT Total # of Minutes Spent Total Time Spent with Patient: Total time spent is greater than 50% in coordination of care (as documented) at patient's floor/unit and/or counseling patient: Coding Level of Care Code 82791 SUB INP/OBS CARE 2/35MIN Diagnoses Cancer related pain G89.3 Pathologic femoral fracture M84.453A 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 unknown primary site C79.89; C80.1 Lumbar pain M54.50 Anxiety F41.9
--- NOTE | 2025-04-02 09:25 | Orthopedic Progress Note ---
Date of Service April 02, 2025 Assessment & Plan (1) Pain from bone metastases: (2) Osteolytic lesion due to metastasis with unknown primary site: Plan * Case/imaging reviewed and discussed with Dr Stahl * XR pelvis, hips reviewed * Discussed prophylactic fixation, patient and family would like to defer any further procedure at this time and focus on comfort measures * Patient is essentially bedbound secondary to back and b/l LE pain * Weight bearing status: activity as tolerated * Would recommend use of walker for offloading to help prevent pathologic fracture of left femur * Daily treatment: Physical Therapy/ Occupational Therapy per protocol * Pain control * Disposition: TBD * Remainder care per primary team * Will follow peripherally, please contact ortho team with further concerns or questions Subjective .Active Problems: Metastatic cancer with multiple bony lesions 60 y/o male with recently diagnosed metastatic cancer with unknown source, including multiple bony lesions. Continues to focus on pain control. Pursuing comfort measures at this time. Review of Systems All systems reviewed & are unremarkable except as noted in HPI & below. Physical Exam Physical exam not performed today Results & Data Results & Data Laboratory Results . Diagnostic Findings . Hip/Pelvis X-Ray 04/01/25 08:50 Clinical History: Evaluate bony lesion 2 views of the pelvis and right hip are submitted for review. Comparison is made to the CT dated 03/24/2025 Findings: An area of heterogeneous lytic and sclerotic change in the lateral left ilium is not as evident by radiographs No fracture or dislocation is seen. There is mild right hip osteoarthritis. No other osseous abnormality is identified. There are no radiopaque foreign bodies. Impression: 1. Mild right hip osteoarthritis 2. Area of mixed lytic and sclerotic change in the left ilium, better seen by recent CT. This is indeterminate in nature and metastatic disease cannot be excluded ACT 112: Positive. There are findings on this exam that require communication between the performing entity and the patient following Patient Test Result Information Act ([place] ACT 112) guidelines. Electronically signed by Kenneth Goncalves 04-01-2025 6:47 PM PG Care Time/CCT Total # of Minutes Spent Total Time Spent with Patient: Total time spent is greater than 50% in coordination of care (as documented) at patient's floor/unit and/or counseling patient: Coding Level of Care Code 15354 SUB INP/OBS CARE 06/02MIN Diagnoses Pain from bone metastases G89.3; C79.51 Osteolytic lesion due to metastasis with unknown primary site C79.51; C80.1
--- NOTE | 2025-04-02 14:20 | Hematology/Oncology Prog Note ---
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 Had an extensive discussion today with patient, his , son, mother and niece. We discussed treatment options for stage IV metastatic adenocarcinoma including supportive care/hospice, concurrent chemoimmunotherapy treatment. Discussed overall prognosis with median overall survival of roughly 1 year. Following extensive discussion, patient indicated he would not want systemic therapy and would like to proceed with supportive care/hospice. Admission and Anticipated Discharge Date Admission Date: March 28, 2025 Results & Data Vital Signs (Past 12 Hours) Vital Signs Temp Pulse Pulse Resp BP Pulse Ox O2 Del Method 04/02/25 11:23 36.4 C L 82 18 112/80 95 Room Air 04/02/25 07:51 75 04/02/25 07:14 36.6 C 62 18 132/83 98 Room Air 04/02/25 02:26 36.6 C 57 L 19 148/78 H 96 BiPAP
--- NOTE | 2025-04-02 22:49 | Communication Note ---
Date of Service: April 02, 2025 Pall Med Brief Note Pt seen/.examined, see progress note Hospice prn meds ordered, pt and family aware Thank you for allowing us to participate in the ongoing care of this patient. Please page with any additional concerns. Chelsy Mercer DNP Director, Palliative Medicine
--- NOTE | 2025-04-03 10:07 | Discharge Summary ---
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 Arrangements have been made (2) Pathologic femoral fracture: -ortho consult appreciated -patient is declining prophylactic fixation of let femur (3) 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 unknown primary site: Pathology suggests adenocarcinoma, with mets to the bones PET scan shows evidence of extensive metastatic disease with mets to the skeletal hepatic muscular soft tissue nodule bilateral adrenal right renal and right cerebellar metastasis. Also femoral neck lesions and right lower lobe lesions. currently undergoing palliative radiation, However patient refused radiation yesterday and said he was afraid. Consulted hematology and oncology (4) Lumbar pain: 03/28/25, PETCT: 1. Extensive FDG avid metastatic disease, as detailed above. This includes skeletal, hepatic, muscular, soft tissue, [place], bilateral adrenal, right renal and right cerebellar metastases. 2. FDG avid left femoral neck lesion which measures approximately 2.8 cm. This increases risk for a pathologic fracture. L3 vertebral body metastasis with pathologic fracture. 3. 3.4 cm irregular right lower lobe FDG avid mass. Although not definitive, this favors a primary tumor. Likely pathological fracture of L3 Per spine surgery, patient would benefit from brace (5) Anxiety: prn lorazepam was in use prior to admission with relief however pain was uncontrolled Now that pain has improved, his anxiety is reduced and we are avoiding concomitant opioid + Benzo use Admission HPI Per Admitting Provider Patient is a 60yo male with history of metastatic malignancy of unknown primary with lesion to bone as well as HTN, HLP, DM, Hypothyroidism presenting with poorly controlled pain secondary to malignancy. Patient started radiation therapy to his L3 spinal lesion today with Dr. Nair - reports he feels some improvement after the first treatment. Is scheduled to have 9 more treatments. Over the last several weeks he has been having poorly controlled pain - located in the back with frequent radiation to the right hip, occasional radiation to the left hip. No trauma. He had been on Oxycodone 5mg po QID. He was seen by the Palliative Care service and his Oxycodone was increased to 15mg po q 4 hours on 11/12/25 as well as Decadron 4mg po BID. Patient with minimal improvement with this regimen. Oxycodone then increased to 30mg po QID. Again with minimal improvement. Patient was seen again by Palliative Care today complaining of severe, ongoing pain. He was referred to the ER for IV main medication. Patient complaining of severe, ongoing lumbar back pain with radiation into the right hip. Positional in nature. He reports that pain has been so severe that he has been unable to stand or walk for the last several days. Also with ongoing constipation. No report of fever, chills, chest pain, cough, SOB, abdominal pain, nausea, vomiting No bowl or bladder dysfunction No new numbness/tingling or weakness of lower extremities - he does have a chronic neuropathy of lower legs bilaterally ER Course: Dilaudid 0.5mg IV x 2 doses Maalox Discharge Exam GENERAL APPEARANCE NAD, activity normal for age, well developed/ well nourished, no cyanosis, pallor, or diaphoresis. EYES lids/conjunctiva normal. EARS/NOSE/THROAT Mucous membranes moist, nares normal, lips/teeth normal uvula midline without oral pharyngeal erythema, exudate or swelling TMs normal bilaterally. No lymphangitis/lymphedema. HEAD/NECK normocephalic atraumatic, no facial trauma, neck is supple. RESPIRATORY respiratory effort normal, speaks in full sentences, no tripod position, no accessory muscle use. Lungs clear to auscultation without rhonchi, wheezes, rales CARDIAC Regular rate and rhythm, no edema. ABDOMINAL Soft, ND/NT. No evidence of fluid wave. No pulsatile masses on exam, rebound tenderness, Nogueira sign or pain over Mcburney's point. MUSCLES/EXTREMITIES No abnormal range of motion, no swelling. SKIN Warm, pink and dry. No rashes, dermatoses, petechiae or lesions. NEUROLOGICAL Speech is clear and appropriate. Normal level of consciousness. Gait and coordination are normal. 5/5 strength in all extremities. PSYCH Normal mood and affect. Judgement/competence is appropriate Discharge Plan Discharge Items Patient Disposition: Home - Self-Care Reason For Visit: SEVERE PAIN Discharge Diagnosis: carcinoma with mets Condition on Discharge: Fair Activity: Resume your previous activity Non-emergency contact: Primary Care Provider Call non-emergency contact if: you have any medication questions Follow-up/Referrals: Bessie Lugo MD [Primary Care Provider] - Diet: Regular Addtl Attending Provider Instructions: Follow up with hospice Pending Studies at Discharge: No Stand-Alone Forms: My [facility] ClipCard, Smoking Cessation Medications and DC Order Prescriptions: New cephalexin 500 mg Capsule 500 mg PO QID Qty: 20 0RF Continued furosemide [Lasix] 40 mg tablet 40 mg PO DAILY losartan-hydrochlorothiazide [Hyzaar] 50-12.5 mg tablet 1 tab PO DAILY levothyroxine 175 mcg capsule 175 mcg PO DAILY omeprazole 20 mg capsule,delayed release(DR/EC) 20 mg PO DAILY lorazepam [Ativan] 1 mg tablet 1 mg PO Q6H PRN (Reason: SPASMS,ANXIETY,NAUSEA,INSOMNIA) 30 Days Qty: 120 0RF haloperidol lactate 2 mg/mL concentrate 1 mg PO Q6H PRN (Reason: AGITATION, DELIRIUM, NAUSEA,RESTLESSNESS) 30 Days Qty: 120 0RF morphine 20 mg/5 mL (4 mg/mL) solution 20 mg PO Q3H PRN (Reason: BREAKTHROUGH PAIN, DYSPNEA, PRIOR TO CARE MOVEMENT) 30 Days Qty: 500 0RF carbidopa-levodopa [Dhivy] 25-100 mg tablet 1 tab PO TID Qty: 1 0RF Rx Instructions: dos not need this filled, only adding to med list dexamethasone 4 mg tablet 4 mg PO BID 30 Days Qty: 60 1RF cyclobenzaprine 10 mg tablet 10 mg PO TID PRN (Reason: muscle spasm) 30 Days Qty: 90 2RF lidocaine 5 % adhesive patch,medicated 1 patch topical DAILY Qty: 30 0RF Rx Instructions: leave on most painful area for up to 12 hrs naloxone [Narcan] 4 mg/actuation spray,non-aerosol 1 spray intranasal ONCE PRN (Reason: opioid overdose) Qty: 2 0RF Discontinued ampicillin 500 mg capsule 500 mg PO TID 14 Days Qty: 42 0RF Admission Data Admit Date/Time: 03/28/25 21:50 Attending Provider: Robbie Fragoso Admit Provider: Lily Stahl Primary Care Provider: Bessie Lugo Other Providers: Dee Mercer; Lily Stahl; Alex Ragsdale; Dayanara Reese; [facility]; David Yanes; Christie Blandon; Petty Tee; Beverly Hayes; Zeinab Carvalho; Jamarcus Leggett; Angy Archer; Vasquez Che; Laquita Holliday; Fawad Ruiz; Nara Yanez; Oswald Stahl; Cesia Posey; Selena Alas; Sathish Gibson; Jarad Gillette.; Leona Perdomo; Chula Gonzalez; Josselyn Mcintyre; Tanya Cleaning; Rupal Roth; David Willis; Jarad Yanez; Jodee Guillen; Mercedes Wong Hospital Stay Data Consultations 03/28/25 21:36 ED Decision to Admit Stat 03/28/25 21:50 Consult Palliative Care Routine 03/29/25 12:56 Consult Orthopedic Spine Surgery Routine 03/29/25 16:55 Consult Oncology Routine 04/01/25 09:22 Consult Orthopedic Surgery Routine Pending Results Patient Have Any Pending Studies at Discharge: No Discharge Instructions Given to Patient (Per Discharging Provider) Follow up with hospice Total Time Total Time Spent Total Time Spent (In Minutes): 50 Coding Level of Care Code 56951 INP/OBS DISCH >30 MIN Diagnoses Cancer related pain G89.3 Pathologic femoral fracture M84.453A 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 unknown primary site C79.89; C80.1 Lumbar pain M54.50 Anxiety F41.9
--- NOTE | 2025-04-03 11:05 | Palliative Care Progress Note ---
Date of Service April 03, 2025 Assessment & Plan (1) Cancer related pain: Plan: Continue DIRECTOR MACHINE Dilaudid demand dose 0.3mg Q20min PRN, continuous rate 0.2mg/hr Reinforced importance of PROPHYLACTIC OIC regimen and adequate hydration (2) Palliative care by specialist: Plan: Palliative care will continue to follow for ongoing symptom management and patient/family support through admission. (3) Anxiety: Plan: Resolved prn lorazepam was in use prior to admission with relief however pain was uncontrolled Now that pain has improved, his anxiety is reduced and we are avoiding concomitant opioid + Benzo use (4) Counseling regarding goals of care: Plan: GOC clearly established for [employer] with discharge to home with hospice, pending DIRECTOR MACHINE pump set up and DME delivery. Plan As above Admission and Anticipated Discharge Date Admission Date: March 28, 2025 Subjective Assessed pt at bedside, Arnold Carr was present. Pt AAOx4 and pleasantly communicative. He voices satisfaction with current pain mgmt regime. shared plan for discharge to home with hospice, but unsure on timing. Discussed with RUTH ANN Weiss who is working with hospice to arrange DME/transportation for discharge to home. Review of Systems Review of Systems: All systems reviewed & are unremarkable except as noted in Subjective Physical Exam Constitutional: WD/WN, vitals as above no acute distress Eyes: PERRL, conjunctivae normal, anicteric sclerae Neck: trachea midline, no thyromegaly Cardiovascular: RRR, no murmur, no edema Gastrointestinal (Abdomen): normal bowel sounds, soft, nontender, no hepatosplenomegaly Skin: no rashes, warm and dry Psychiatric: A+Ox3, euthymic affect Results & Data Vital Signs (Past 12 Hours) Vital Signs Temp Pulse Pulse Resp BP BP Pulse Ox 04/03/25 07:21 64 04/03/25 07:14 36.3 C L 60 19 137/80 96 04/03/25 04:06 36.9 C 62 19 128/79 95 04/03/25 03:08 67 16 96 O2 Del Method 04/03/25 07:21 04/03/25 07:14 Room Air 04/03/25 04:06 Room Air 04/03/25 03:08 Laboratory Results No further labs or diagnostics in concert with comfort directed care. Diagnostic Findings No further labs or diagnostics in concert with comfort directed care. Medications Administered Current Inpatient Medications Acetaminophen (Acetaminophen 325 Mg Tab) 650 mg PO Q4H PRN PRN Reason: Pain or Fever Stop: 04/28/25 00:31 Al Hydrox/Mg Hydrox/Simethicone (Aluminum/Magnesium Susp 30 Ml Udc) 15 ml PO Q6H PRN PRN Reason: heartburn Stop: 04/27/25 22:59 Last Admin: 03/29/25 06:11 Dose: 15 ml Atorvastatin Calcium (Atorvastatin 40 Mg Tab) 40 mg PO DAILY MANISH Stop: 04/28/25 08:59 Last Admin: 04/03/25 08:34 Dose: 40 mg Carbidopa/Levodopa (Carbidopa/Levodopa 25/100mg Tab) 1 tab PO TID MANISH Stop: 04/28/25 08:59 Last Admin: 04/03/25 08:34 Dose: 1 tab Cephalexin HCl (Cephalexin 500 Mg Cap) 500 mg PO QID MANISH; Protocol Stop: 04/05/25 16:59 Last Admin: 04/03/25 08:34 Dose: 500 mg Dexamethasone (Dexamethasone 4 Mg Tab) 4 mg PO DAILY MANISH Stop: 04/28/25 08:59 Last Admin: 04/03/25 08:34 Dose: 4 mg Dextrose (Dextrose 50% 50 Ml Syringe) 25 - 50 ml IV UD PRN; Protocol PRN Reason: Hypoglycemia Protocol Stop: 04/28/25 00:31 Enoxaparin Sodium (Enoxaparin Inj 40 Mg/0.4 Ml Syr) 40 mg SQ Q24H MANISH Stop: 04/28/25 08:59 Last Admin: 04/03/25 08:35 Dose: 40 mg Furosemide (Furosemide 40 Mg Tab) 40 mg PO DAILY MANISH Stop: 04/28/25 08:59 Last Admin: 04/03/25 08:34 Dose: 40 mg Glucagon (Glucagon For Inj 1 Mg Vial) 1 mg SQ UD PRN; Protocol PRN Reason: Hypoglycemia Protocol Stop: 04/28/25 00:31 Glucose (Glucose 40% Gel 15 Gm Tube) 15 - 30 gm PO UD PRN; Protocol PRN Reason: Hypoglycemia Protocol Stop: 04/28/25 00:31 Glucose (Glucose 10 Tab/Tube) 4 - 8 tab PO UD PRN; Protocol PRN Reason: Hypoglycemia Protocol Stop: 04/28/25 00:31 HCTZ/Losartan Potassium (Losartan/Hctz 50/12.5mg Tab) 1 tab PO DAILY MANISH Stop: 04/28/25 08:59 Last Admin: 04/03/25 08:34 Dose: 1 tab Hydromorphone HCl (Hydromorphone Sharepoint Architect 30 Mg/30 Ml) 30 mg IV PRN PRN; Protocol PRN Reason: DIRECTOR MACHINE Pain Titration Stop: 04/12/25 01:04 Last Admin: 04/01/25 08:00 Dose: 30 mg Sodium Chloride (Nss) 1,000 mls @ 15 mls/hr IV .Q24H MANISH Stop: 04/12/25 01:05 Last Admin: 04/03/25 09:33 Dose: Not Given Insulin Aspart (Insulin Aspart Per Unit Charge) 0 units SC ACHS MANISH Stop: 04/28/25 07:29 Last Admin: 04/03/25 08:18 Dose: Not Given Levothyroxine Sodium (Levothyroxine Sodium 175 Mcg Tablet) 175 mcg PO DAILYBB [facility] [place] Stop: 04/28/25 06:29 Last Admin: 04/03/25 06:12 Dose: 175 mcg Lidocaine (Lidocaine 5% 1 Patch) 2 patch TD DAILY MANISH Stop: 04/30/25 09:44 Last Admin: 04/03/25 08:35 Dose: 2 patch Miscellaneous (Remove Lidoderm Patch) 1 each N/A DAILY@2100 [facility] Stop: 04/28/25 20:59 Last Admin: 04/02/25 21:01 Dose: 1 each Miscellaneous (Carbohydrates For Hypoglycemia ) 15 - 30 gm PO UD PRN PRN Reason: Hypoglycemia Protocol Stop: 04/28/25 00:31 Naloxone HCl (Naloxone Hcl 0.4 Mg/1 Ml Vial/Carp) 0.1 mg IV Q5M PRN; Protocol PRN Reason: Oversedation/Resp Depression Stop: 04/12/25 01:04 Ondansetron HCl (Ondansetron Inj 2 Mg/Ml 2 Ml Vial) 4 mg IV Q6H PRN PRN Reason: Nausea And Vomiting Stop: 04/28/25 00:31 Last Admin: 03/29/25 01:19 Dose: 4 mg Pantoprazole Sodium (Pantoprazole 40 Mg Tab) 40 mg PO DAILY MANISH Stop: 04/28/25 08:59 Last Admin: 04/03/25 08:34 Dose: 40 mg Polyethylene Glycol (Polyethylene (Miralax) 17 Gm Pack) 17 gm PO BID PRN PRN Reason: Constipation Stop: 04/28/25 00:31 Last Admin: 04/02/25 13:29 Dose: 17 gm Senna/Docusate Sodium (Docusate Sodium/Senna 50/8.6mg Tab) 1 tab PO BID MANISH Stop: 05/02/25 08:59 Last Admin: 04/03/25 08:37 Dose: 1 tab PG Care Time/CCT Total # of Minutes Spent Total Time Spent with Patient: Total time spent is greater than 50% in coordination of care (as documented) at patient's floor/unit and/or counseling patient: Coding [place] [address] SUB INP/OBS CARE 2/35MIN Patient Type Established History Problem Focused Exam Problem Focused Medical Decision Making Moderate Complexity Diagnoses Cancer related pain G89.3 Palliative care by specialist Z51.5 Anxiety F41.9 Counseling regarding goals of care Z71.89
[2025-04-03] MEDS: HYDROmorphone INJ 0.5 MG/0.5 ML SYR IV STA (19:47)
== END 2025-04-03 20:04 | disposition hospice, home (50) | DRG 948 ==
LOC: ED 19:27 → 4W 21:50 → SUATTDRO 21:50 → 4W 03-29 00:15